=== PATIENT | male | born 1960 | race Caucasian/White ===

== ENCOUNTER 2018-06-20 20:35 | Emergency (ER) | payer MEDICARE, SELFPAY ==
[2018-06-20 20:36] VITALS: BP 192/107; PULSE 99; RESP 14; TEMP 36.6; O2SAT 98; BMI 33.2
--- NOTE | 2018-06-20 20:59 | ED.DCSUM_ITS ---
- ER Visit Summary Date of Service: 06/20/18 Chief Complaint: Right facial redness History of Present Illness: The patient is a 58 M past medical history of chronic back pain, gout and hypertension. He sees pain management. He says since last or Tuesday he has had right facial redness. Denies fever or chills. Denies any pus. Denies any injury. He does shave. He is never had anything like this before. Physical Examination: Well-appearing middle-age male. Vital signs are stable afebrile. HEENT exam pupils are round reactive light. His right cheek there is redness the tissue is firm and indurated. There is no fluctuance. There is no pus pocket. There is no discharge. Skin looks to be obviously infected. Like a folliculitis with cellulitis. It does not involve the eye. There is no cervical or preauricular lymphadenopathy. Neck is nontender. Lungs clear to auscultation. Heart regular rhythm no murmur. Abdomen soft nontender. He is moving all 4 extremities. Neurologically is awake and alert moving all 4 extremities. Test Results: None Emergency Department Course and Treatment: Patient has a facial folliculitis with cellulitis. There is no abscess to drain at this time. I did instruct him to return if he developed an abscess. He will be started on both Bactrim and Keflex for 10 days. First dose given in the ER. Treatment Plan: Keflex and Bactrim for 10 days. Warm compresses. Follow-up with his PCP. Disposition: Discharge Impression: Acute right facial folliculitis with cellulitis This note was generated with Influitive dictation software. It may contain incorrect words, spelling, and punctuation that were not noted in review of the chart prior to signing ED Disposition - Plan for ED Patient: Chief Complaint: Cellulitis Referrals: Harvey Erazo MD [Primary Care Provider] -
--- NOTE | 2018-06-20 20:59 | ED.DEP ---
ED Disposition - Plan for ED Patient: Disposition: Home or Assisted Living Chief Complaint: Cellulitis Instructions: ED Staph Infec Abx Tx Only Prescriptions: Cephalexin [Keflex] 500 mg PO Q6 #40 cap Smz/Tmp Ds [Bactrim Ds] 1 tab PO BID #20 tab Referrals: Harvey Erazo MD [Primary Care Provider] - 3-5 Days if not improving Additional Instructions: Warm compresses to right cheek. Bactrim 1 pill twice a day. Keflex 1 pill 4 times a day both till gone. Return if looking a lot worse or you develop an abscess where the swelling gets much worse. If you develop an abscess we will need to drain that.
[2018-06-20] MEDS: Cephalexin 250 MG Capsule 500 MG PO (21:09)
[2018-06-20] MEDS: Smz/Tmp Ds Tablet 1 TABLET PO (21:09)
== END 2018-06-20 21:12 | disposition home or self-care (01) ==
PROVIDERS: Emergency Provider Emergency Medicine; Family Provider Family Medicine; PCP Family Medicine
DX: L73.9 Follicular disorder, unspecified (principal); L03.211 Cellulitis of face; M54.9 Dorsalgia, unspecified; G89.29 Other chronic pain; M10.9 Gout, unspecified; I10 Essential (primary) hypertension; Z79.899 Other long term (current) drug therapy
CPT/HCPCS: 99283

== ENCOUNTER → 2018-10-20 13:47 | Outpatient (CLI) | payer MEDICARE, SELFPAY ==
[2018-10-20 15:00] LABS: Amphetamine Urine VISTA NEGATIVE (<1000 ng/mL); Barbiturate Urine VISTA NEGATIVE (< 200 ng/mL); Benzodiazepine Urine VISTA NEGATIVE (< 200 ng/mL); Cocaine Urine VISTA NEGATIVE (< 300 ng/mL); Ecstacy Urine VISTA NEGATIVE (< 500 ng/mL); Methadone Urine VISTA NEGATIVE (< 300 ng/mL); PCP Urine VISTA NEGATIVE (< 25 ng/mL); THC Urine VISTA NEGATIVE (< 50 ng/mL); Vista UDS pH Range 5
== END ==
PROVIDERS: Family Provider Family Medicine; PCP Family Medicine; Referring Provider Anesthesiology Pain Medicine; Visit Provider Anesthesiology Pain Medicine
DX: F11.20 Opioid dependence, uncomplicated (principal)
CPT/HCPCS: 80307

== ENCOUNTER → 2018-11-09 15:40 | Outpatient (CLI) | payer MEDICARE, SELFPAY ==
--- NOTE | 2018-11-09 15:05 | NASAL_PTH ---
PATIENT: PABLITO QUINN LOC: [facility] U#:[id number] AGE/SX: 65/M ROOM: RE11/09/[address]: Dr. Iraj Berger MD : 1960 BED: DIS: SPEC #: [id number] RECD: 11/09/18 15:21 STATUS: SHARDA KATHLEEN #: [id number] TYLER: 11/09/18 15:[address]: Iraj Berger DEPT: SURGICAL PATHOLOGY RECD BY: Laith Toney ENTERED: 11/10/18 09:46 SP TYPE: NASAL SPEC OTHR DR: Dr. Pablito Erazo MD Tissues: Nasal septum, NOS Procedures: Surgery Specimen Level III HEADER OPERATION: Biopsy nasal septum PRE-OP DIAGNOSIS: Nasal mass TISSUE SUBMITTED: Biopsy nasal septum MICROSCOPIC DIAGNOSIS Nasal septum, biopsy: Minute fragment of fibrovascular tissue with acute inflammation. AM:umm 11/13/18 MICROSCOPIC DESCRIPTION Slides are reviewed. GROSS DESCRIPTION Received in fixative is one container labeled with the patient's name and designated nasal septum biopsy. The specimen consists of a minute black fragment measuring <0.1 cm in greatest dimension. The entire specimen is submitted in one cassette. / SJ:umm 11/10/18 TC:2 CPT: 42492
== END ==
PROVIDERS: Family Provider Family Medicine; PCP Family Medicine; Referring Provider Otolaryngology; Visit Provider Otolaryngology
DX: R22.0 Localized swelling, mass and lump, head (principal)
CPT/HCPCS: 88304

== ENCOUNTER → 2018-11-13 09:26 | Outpatient (CLI) | payer MEDICARE, SELFPAY ==
--- NOTE | 2018-11-13 09:40 | EKG12_ITS ---
Test Reason : PREOP Blood Pressure : / mmHG Vent. Rate : 075 BPM Atrial Rate : 075 BPM P-R Int : 192 ms QRS Dur : 088 ms QT Int : 382 ms P-R-T Axes : 064 028 057 degrees QTc Int : 426 ms Normal sinus rhythm Normal ECG Confirmed by ALISA PATRICK, JEB ([id number]), editor farm journal CONSTANTINE FERNANDES ([id number]) on 11/14/2018 8:27:19 AM Referred By: Serjio Berger Confirmed By:JEB CUELLAR MD
[2018-11-13 10:02] LABS: Hemoglobin 13.1 g/dl (13.0-16.5); Mean Corpuscular Hgb 24.8 pg (27.0-32.0); Mean Corpuscular Volume 77.7 fL (80-94); Mean Platelet Vol. 9.5 fl (6.2-12.0); Platelet Count 248 K/mm3 (150-450); RBC Distribution Width CV 15.2 % (11.6-14.6); RBC Distribution Width SD 42.5 fl (35.1-43.9); Red Blood Count 5.28 M/mm3 (4.6-6.2); White Blood Count 7.2 K/mm3 (4.4-11.0)
[2018-11-13 10:06] LABS: Scan Indicated on CBC? Y/N NO
[2018-11-13 10:09] LABS: Anion Gap 7 (5-15); BUN 10 mg/dL (7-18); Calcium,Total 8.5 mg/dL (8.5-10.1); Chloride 102 mmol/L (98-107); EST Glomerular Filtration Rate 82 mL/min (>60); Est Glom Filt Rate - Afr Amer 99 mL/min (>60); Glucose 137 mg/dL (74-106); Potassium 3.5 mmol/L (3.5-5.1); Sodium Level 136 mmol/L (136-145)
== END ==
PROVIDERS: Family Provider Family Medicine; PCP Family Medicine; Referring Provider Otolaryngology Otolaryngology/Facial Plastic Surgery; Visit Provider Otolaryngology Otolaryngology/Facial Plastic Surgery
DX: Z01.818 Encounter for other preprocedural examination (principal)
CPT/HCPCS: 36415; 80048; 85027; 93005

== ENCOUNTER → 2019-06-20 16:37 | Outpatient (CLI) | payer MEDICARE, SELFPAY ==
[2019-06-20 17:19] LABS: Amphetamine Urine VISTA NEGATIVE (<1000 ng/mL); Barbiturate Urine VISTA NEGATIVE (< 200 ng/mL); Benzodiazepine Urine VISTA NEGATIVE (< 200 ng/mL); Cocaine Urine VISTA NEGATIVE (< 300 ng/mL); Ecstacy Urine VISTA NEGATIVE (< 500 ng/mL); Methadone Urine VISTA NEGATIVE (< 300 ng/mL); PCP Urine VISTA NEGATIVE (< 25 ng/mL); THC Urine VISTA NEGATIVE (< 50 ng/mL); Vista UDS pH Range 5
== END ==
PROVIDERS: Family Provider Family Medicine; PCP Family Medicine; Referring Provider Anesthesiology Pain Medicine; Visit Provider Anesthesiology Pain Medicine
DX: F11.20 Opioid dependence, uncomplicated (principal)
CPT/HCPCS: 80307

== ENCOUNTER → 2019-09-27 15:31 | Outpatient (CLI) | payer MEDICARE, SELFPAY ==
--- NOTE | 2019-09-27 15:38 | RAD_ITS ---
STUDY: X-RAY - LUMBAR SPINE REASON FOR EXAM: Male, 59 years old. CHRONIC LOW BACK PAIN; -- PATIENT STATES H/O FRACTURE L1 and amp; L2, 34 YRS AGO TECHNIQUE: 2 view(s) of the lumbar spine were obtained. COMPARISON: February 22, 2010 FINDINGS: Normal lumbar lordosis. Again noted is a chronic compression at L1 There is multilevel endplate spondylosis of the lumbar vertebrae. There is multi-level degenerative disc disease with multi-level disc space narrowing. The soft tissue structures are unremarkable. RAD/Lumbar Spine 2 or 3 Views IMPRESSION: Degenerative changes of the spine. Electronically Signed: Aniyah Le MD at 8:25 EST Tel , Service support ,
== END ==
PROVIDERS: PCP Family Medicine; Referring Provider Anesthesiology Pain Medicine; Visit Provider Anesthesiology Pain Medicine
DX: M54.9 Dorsalgia, unspecified (principal)
CPT/HCPCS: 72100

== ENCOUNTER 2019-10-14 21:08 | Emergency (ER) | payer MEDICARE, SELFPAY ==
[2019-10-14 21:08] VITALS: BP 205/108; PULSE 86; RESP 18; TEMP 36.8; O2SAT 98; BMI 31.8
[2019-10-14 21:36] VITALS: BP 173/112; RESP 16
--- NOTE | 2019-10-14 22:01 | ED.VIS.GEN ---
History of Present Illness Chief Complaint: Abscess Narrative: Patient presenting due to concern for infection of his finger. Patient is right-hand dominant. Patient states that he felt as if he was having an ingrown fingernail in the small digit of his left hand over the course of the last 3 to 4 days. He has had progressive swelling and pain, and now has whiteness under the proximal portion of the fingernail. Patient denies constitutional symptoms such as fevers. Patient denies any injury associated with this. Patient denies that he is a diabetic. 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 Past Medical History - Allergies and Home Meds Allergies/Adverse Reactions: Allergies propoxyphene napsylate [From Darvocet-N 100] Allergy (Verified 10/14/19 21:11) Rash tramadol HCl [From Ultram] Adverse Reaction (Verified 10/14/19 21:11) Upset Stomach Primary Care Physician: Harvey Erazo MD [Primary Care Provider] - Past Medical History: - - COPD, gout Smoking Status: Never smoker Review of Systems General: Denies: Fever Respiratory: Denies: Dyspnea Gastrointestinal: Denies: Vomiting Musculoskeletal: Reports: Extremity Pain Skin: Reports: Abscess Endocrine: Denies: Polyuria Hematologic: Denies: Easy bruising Allergy: Denies: Uticaria Physical Exam Vital Signs/Narrative: Vital Signs Temp Pulse Resp BP Pulse Ox 10/14/19 21:36 16 173/112 H 10/14/19 21:08 98.2 F 86 18 205/108 H 98 Inital Vital Signs reviewed: Yes General: Well nourished, Well developed, No Acute Distress Head: Normocephalic, Atraumatic Eyes: EOMI ENT: Moist mucous membranes Neck: Supple Cardiovascular: Regular rate, Regular rhythm Respiratory: No distress Extremities: - - Examination of the patient's upper extremity shows amputation of the distal portion of the patient's index long and ring finger on the left hand. Examination of the patient's small digit shows evidence of a paronychia over the ulnar portion of the proximal nail with some swelling of the distal phalanx, but the pad of the finger is still soft and does not appear to be fluctuant. There is erythema of the distal phalanx without tracking proximally. Neurological: Alert, Oriented x3 Diagnostic/Tx/Re-eval - Medical Decision Making Patient presented secondary to a infection of the finger. Physical exam demonstrates evidence of a paronychia. While he does have some swelling of the pad of his finger, it does not seem to be fluctuant and I do not feel that this is a presentation of a felon. Paronychia was drained as noted in the procedure note, the patient's finger was soaked in soapy water for 20 minutes and was dressed with a bacitracin dressing. Patient be placed on a course of Bactrim and was recommended antibacterial soaks 3 times a day and follow-up with primary care. He understands signs and symptoms which to return. Procedures Procedure(s): Incision and drainage of the patient's left small digit paronychia was performed. Area was cleansed with an alcohol prep. 21-gauge needle was utilized, and was used to dissect the space between the nail and the cuticle. Copious amounts of purulent material were expressed. Patient tolerated this well. ED Disposition - Plan for ED Patient: Disposition: Home or Assisted Living Diagnosis: Paronychia Instructions: Paronychia Prescriptions: Smz/Tmp Ds [Bactrim Ds] 1 tab PO BID #14 tab Prescription Printed Referrals: Harvey Erazo MD [Primary Care Provider] - 2 Days for wound check
[2019-10-14] MEDS: Smz/Tmp Ds Tablet 1 TABLET PO (22:10)
--- NOTE | 2019-10-14 22:13 | ED.RN ---
PT A+OX4. THIS RN EDUCATES PT ON WRITTEN AND VERBAL DISCHARGE INSTRUCTIONS AND HOME GOING PRESCRIPTIONS. PT EDUCATED ON WOUND CARE AND DRESSING CHANGES. PT VERBALIZES UNDERSTANDING AND DENIES ANY FURTHER QUESTIONS. PT EDUCATED ON FOLLOW UP AND TO RETURN TO ED FOR ANY NEW OR WORSENED SX. PT AMBULATES OUT OF DEPT BY SELF WITH NO ASSISTANCE FROM STAFF REQUIRED.
== END 2019-10-14 22:16 | disposition home or self-care (01) ==
PROVIDERS: Emergency Provider Emergency Medicine; PCP Family Medicine
DX: L03.012 Cellulitis of left finger (principal); J44.9 Chronic obstructive pulmonary disease, unspecified; M10.9 Gout, unspecified; Z79.899 Other long term (current) drug therapy
CPT/HCPCS: 10060; 99283

== ENCOUNTER → 2020-04-09 16:13 | Outpatient (CLI) | payer MEDICARE, SELFPAY ==
[2020-04-09 17:22] LABS: Amphetamine Urine VISTA NEGATIVE (<1000 ng/mL); Barbiturate Urine VISTA NEGATIVE (< 200 ng/mL); Benzodiazepine Urine VISTA NEGATIVE (< 200 ng/mL); Cocaine Urine VISTA NEGATIVE (< 300 ng/mL); Ecstacy Urine VISTA NEGATIVE (< 500 ng/mL); Methadone Urine VISTA NEGATIVE (< 300 ng/mL); PCP Urine VISTA NEGATIVE (< 25 ng/mL); THC Urine VISTA NEGATIVE (< 50 ng/mL); Vista UDS pH Range 8
== END ==
LOC: LAB 16:15
PROVIDERS: PCP Family Medicine; Referring Provider Anesthesiology Pain Medicine; Visit Provider Anesthesiology Pain Medicine
DX: F11.20 Opioid dependence, uncomplicated (principal)
CPT/HCPCS: 80307

== ENCOUNTER 2021-08-26 23:02 | Emergency (ER) | payer MEDICARE, SELFPAY ==
[2021-08-26 23:03] VITALS: BP 176/112; PULSE 82; RESP 16; TEMP 36.7; O2SAT 96; BMI 31.8
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
[2021-08-26] MEDS: Cephalexin 250 MG Capsule 500 MG PO (23:49)
[2021-08-26] MEDS: Lidocaine 1% (20 ml mdv) 20 ML Vial INFILT (23:50)
[2021-08-26 23:51] VITALS: RESP 18
== END 2021-08-26 23:52 | disposition home or self-care (01) ==
LOC: ED 23:43
PROVIDERS: Emergency Provider Emergency Medicine; PCP Family Medicine; Visit Provider Emergency Medicine
DX: L03.313 Cellulitis of chest wall (principal); I10 Essential (primary) hypertension; Z79.899 Other long term (current) drug therapy; R22.2 Localized swelling, mass and lump, trunk
CPT/HCPCS: 10060; 99282

== ENCOUNTER 2022-02-11 18:29 | Emergency (ER) | payer MEDICARE, SELFPAY ==
[2022-02-11 18:29] VITALS: BP 198/114; PULSE 112; RESP 26; TEMP 36.3; O2SAT 95; BMI 30.3
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
[2022-02-11 19:51] VITALS: BP 172/105; PULSE 76; RESP 15; O2SAT 98
[2022-02-11 20:34] VITALS: BP 180/103; PULSE 84; RESP 15; O2SAT 97
--- NOTE | 2022-02-11 20:35 | ED.RN ---
pt asked if he had a ride that we could call for him. no ride. dr was consulted and pt released. pt was able to ambulate out of department with a steady gait without signs of balance issues. julien mota rn [id number]
== END 2022-02-11 20:37 | disposition home or self-care (01) ==
PROVIDERS: Emergency Provider Emergency Medicine; PCP Family Medicine; Visit Provider Emergency Medicine
DX: J96.00 Acute respiratory failure, unspecified whether with hypoxia or hypercapnia (principal); T40.601A Poisoning by unspecified narcotics, accidental (unintentional), initial encounter; I10 Essential (primary) hypertension; Z79.899 Other long term (current) drug therapy
CPT/HCPCS: 99285

== ENCOUNTER 2023-05-08 21:40 | Emergency (ER) | payer MEDICARE, MEDICAID, SELFPAY ==
[2023-05-08 21:42] VITALS: BP 189/111; PULSE 90; RESP 16; TEMP 36.1; BMI 30.5
[2023-05-08 21:46] VITALS: BP 189/111; PULSE 90; RESP 16; TEMP 36.1
[2023-05-08 22:07] VITALS: BMI 27.1
--- NOTE | 2023-05-08 22:10 | EDS_ITS ---
HPI History of Present Illness Chief Complaint: Lower Extremity Injury [facility] Medical History (Updated 05/08/23 @ 23:[address] Austin Vasquez, DO) Gout Hypertension Home Medications lisinopril 10 mg tablet 40 mg PO DAILY 06/14/13 [History Last Taken 09/09/13] allopurinol 100 mg tablet 300 mg PO DAILY 03/03/15 [History Last Taken Unknown] oxycodone 5 mg capsule 5 mg PO Q6H PRN pain 3 days #12 caps 05/08/23 [Rx Last Taken Unknown] prednisone 50 mg tablet 50 mg PO DAILY #5 tabs 05/08/23 [Rx Last Taken Unknown] Allergy/AdvReac Type Severity Reaction Status Date / Time propoxyphene napsylate Allergy Rash Verified 05/08/23 21:41 [From Darvocet-N 100] tramadol HCl [From Ultram] AdvReac Upset Verified 05/08/23 21:41 Stomach Social History Smoking Status: Never smoker EXAM Physical Exam Const Vital Signs: 05/08/23 21:42 05/08/23 21:46 Temperature 97.0 F L 97.0 F L Temperature Source Temporal Temporal Pulse Rate 90 90 Respiratory Rate 16 16 Blood Pressure 189/111 H 189/111 H Blood Pressure Mean 137 137 MDM MDM MDM Narrative Medical decision making narrative: HISTORY OF PRESENT ILLNESS: 63-year-old male here with concern for left foot pain. States he is history of gout but has been suffering from pain for the last several days secondary to not be able to arrange transportation to the emergency department. He states this feels like prior gouty flares. Denies history of diabetes or fevers. States he has first digit pain and left knee pain. No injury noted. Patient denies active cancer, being bedridden for greater than 3 days, denies unilateral leg swelling, denies any varicose veins, denies any calf tenderness, denies tenderness along deep venous system. Denies major surgery within 12 weeks, recent paralysis, previous DVT. REVIEW OF SYSTEMS: Pertinent positives: Pain Pertinent negatives: Fever, chills, loss of sensation PHYSICAL EXAM: Nursing triage notes reviewed, Vital signs reviewed Constitutional: please see mdm HENT: MMM Eyes: Pupils equal round and reactive to light, Extraocular muscles intact Neck: No stridor, no JVD, full neck ROM Lungs: Clear to auscultation, No wheezing or rales. No increased work of breathing, no conversational dyspnea, no accessory muscle use, no nasal flaring. No respiratory distress noted Heart: Regular rate and rhythm, No murmurs, No rubs and No gallops, 2+ distal pulses (radial, femoral, posterior tibial) in all extremities Abdomen: Soft, there is no tenderness, rigidity, rebound or guarding, no obvious peritoneal signs, no palpable pulsatile abdominal masses, no auscultated abdominal bruit : No CVAT Extremities: Slight swelling noted to the left first MTP, no obvious deformities or signs of open fracture. Compartments are soft. Neuro: No focal neurological deficits, cranial nerves II through XII intact, 5/5 strength in all extremities. Intact sensation to light touch in all extremities, 2+ reflexes bilateral patella tendons. Normal gait. No ataxia. Skin: No rash or lesions noted, is no crepitus or bullae no overlying erythema or cellulitic changes. MEDICAL DECISION MAKING: Chief Complaint: Left foot pain External records reviewed: Imaging studies reviewed: X-ray of the patient's right ankle from 2015 shows no acute abnormality Factors affecting care: Hypertension, gout Social determinants of health: Poor access to transportation MDM Narrative: Patient was initially hemodynamically stable, afebrile, nontoxic-appearing. Elevated blood pressure was noted likely secondary to pain. I considered the following differential diagnosis: Gout arthritis, septic art hritis, fracture dislocation, compartment syndrome, acute limb ischemia, DVT There is no clinical evidence to suggest septic arthritis, fracture dislocation, compartment syndrome, acute limb ischemia or DVT. There is no trauma to suggest fracture dislocation. No indication for imaging at this time. Patient's clinical presentation is consistent with a gouty flare. Will give anti-inflammatories and form of NSAIDs, prednisone and give pain relief in the form of oral narcotics. Gave strict return precautions and follow-up instructions The patient and/or family, caregivers express understanding. The patient and/or family, caregivers agrees with the plan. Shared decision making: I will have a discussion with the patient and or visitors regarding risk/benefits of further testing or admission. They will be made aware of of the risk/benefits inherent in this decision they will be given the opportunity to voice understanding. Total critical care time today provided was at least 0 [] minutes. This excludes separately billable procedures. Critical care time (if documented) is secondary to the patient having high probability of clinically significant/life threatening deterioration in the patient's condition which required my urgent intervention. Impression: 1. Gouty flare 2. Hypertension Dispo: Discharge Discharge Plan Triage Chief Complaint: Lower Extremity Injury ED Provider: Austin Vasquez Dx/Rx/DC Orders Instructions: ED Gout Prescriptions: New prednisone 50 mg tablet 50 mg PO DAILY Qty: 5 0RF oxycodone 5 mg capsule 5 mg PO Q6H PRN (Reason: pain) 3 Days Qty: 12 0RF No Action lisinopril 10 MG tablet 40 mg PO DAILY allopurinol 100 MG tablet 300 mg PO DAILY Primary Care Provider: Harvey Erazo Referrals: Harvey Erazo MD [Primary Care Provider] - Activity Restrictions/Additional Instructions: Thank you for trusting us with your care today! Please take Tylenol (2 pills, 650 mg), ibuprofen (2 pills, 400 mg) every 6 hours as needed for pain and fever control. Please take oxycodone if this does not relieve your pain. Please take prednisone as prescribed. Please return to the emergency department if your symptoms change or worsen. Please follow with your primary care physician for further outpatient evaluation and management. Disposition Disposition: Home, Self Care
[2023-05-08] MEDS: Oxycodone/Apap 5/325 Tablet PO (23:33)
[2023-05-08] MEDS: predniSONE 20 MG Tablet 40 MG PO (23:33)
[2023-05-08] MEDS: Ibuprofen 200 MG Tablet 400 MG PO (23:33)
== END 2023-05-08 23:42 | disposition home or self-care (01) ==
PROVIDERS: Emergency Provider Emergency Medicine; PCP Family Medicine; Visit Provider Emergency Medicine
DX: M10.9 Gout, unspecified (principal); I10 Essential (primary) hypertension; Z79.899 Other long term (current) drug therapy
CPT/HCPCS: 99283

== ENCOUNTER 2024-09-26 04:08 | Inpatient (IN) | payer MEDICARE, MEDICAID, SELFPAY ==
[2024-09-26] VITALS (20 sets, daily range): BP systolic 128–198; BP diastolic 59–113; PULSE 58–99; RESP 14–18; TEMP 36.2–37; O2SAT 94–100; BMI 28.8; BMI 27.4
--- NOTE | 2024-09-26 04:28 | RAD_ITS ---
PROCEDURE: KNEE 4 OR MORE VIEWS REASON FOR EXAM: 64-year-old male, left knee pain. Fall 3 days ago. TECHNIQUE: 4 view(s) of the left knee COMPARISON: None. FINDINGS: Diffuse osseous demineralization. No fracture. No suspicious bone lesion. Normal alignment. Mild degenerative changes. Small left knee effusion. Soft tissues are unremarkable. RAD/Knee 4 or More Views IMPRESSION: KNEE JOINT EFFUSION. WITH A HISTORY OF TRAUMA AND NO VISIBLE FRACTURE, INTERNAL DERANGEMENT CANNOT BE EXCLUDED. Reading Location: [id number]
[2024-09-26 05:00] LABS: Absolute Lymphocyte Count 0.94 X10^3/uL (0.83-4.51); Basophil# 0.08 X10^3/uL; Basophil% 0.6 % (0-1); Eosinophil# 0.05 X10^3/uL; Eosinophils% 0.4 % (0-5); Hemoglobin 15.8 g/dL (13.0-16.5); Lymphocyte # 0.94 X10^3/ul (0.83-4.51); Lymphocyte % 6.9 % (19-41); Mean Corp Hgb Conc 35.1 g/dL (32-36); Mean Corpuscular Hgb 28.5 pg (27.0-32.0); Mean Corpuscular Volume 81.1 fL (80-94); Monocyte# 1.53 X10^3/uL; Monocyte% 11.2 % (0-10); NRBC Flagged by Analyzer 0 % (0-5); Neutrophil % 80.2 % (47-70); POSITIVE DIFFERENTIAL YES; Platelet Count 308 K/mm3 (150-450); RBC Distribution Width CV 13.3 % (11.6-14.6); RBC Distribution Width SD 38.5 fl (35.1-43.9); Red Blood Count 5.55 M/mm3 (4.6-6.2); White Blood Count 13.7 K/mm3 (4.4-11.0)
[2024-09-26 05:01] LABS: Differential Indicated SCAN CRITERIA MET
[2024-09-26 05:02] LABS: Anion Gap 11 (5-15); BUN 27 mg/dL (7-18); BUN/Creat Ratio 18.4 RATIO (10-20); Calcium,Total 9.1 mg/dL (8.5-10.1); Chloride 96 mmol/L (98-107); Creatinine, Serum 1.47 mg/dL (0.70-1.30); EST Glomerular Filtration Rate 52 mL/min (>60); Est Glom Filt Rate - Afr Amer 62 mL/min (>60); Glucose 108 mg/dL (74-106); Potassium 3.3 mmol/L (3.5-5.1); Sodium Level 130 mmol/L (136-145); Uric Acid 7.6 mg/dL (3.5-7.2)
[2024-09-26] MEDS: Lidocaine 2% /Epi 1:100 (20ml) 20 ML VIAL INFILT (05:09)
[2024-09-26 05:11] LABS: Lactic Acid 1.3 mmol/L (0.4-1.9)
[2024-09-26] MEDS: Ketorolac 30 MG/ML Syringe IV (05:15)
[2024-09-26] MEDS: 0.9% Normal Saline (1000mL) 1,000 ML 999 ML IV (05:15)
[2024-09-26 05:26] LABS: Differential Comment SCANNED; Erythrocyte Sedimentation Rate 57 mm/hr (0-20)
[2024-09-26 05:56] LABS: Synovial Fld Mononuclear WBC # 1.661 10^3/ul; Synovial Fld Mononuclear WBC % 4.9 %; Synovial Fld Polynuclear WBC # 32.445 10^3/uL; Synovial Fld Polynuclear WBC % 95.1 %
[2024-09-26 07:07] LABS: CRYSTALS, BODY FLUID See PATH REV
[2024-09-26 07:08] LABS: RBC /Synovial Fluid 0.003 10^6/uL (0)
--- NOTE | 2024-09-26 07:10 | EDS_ITS ---
HPI History of Present Illness Chief Complaint: Lower Extremity Injury Informant: patient and EMS Narrative Narrative: Patient is a 64-year-old male with past medical history of gout and hypertension. He states on Tuesday he was walking when he slipped on the snow. He states he did not fall or strike his knee and he states that he did not have any sudden onset of pain or swelling. However over the next 3 days he noticed increasing left knee swelling and pain. He states he got to the point where he could not stand and walk this morning and therefore called EMS to bring him in for evaluation. Patient denies any fevers or chills or history of immunosuppre ssion [facility] Medical History Gout Hypertension Home Medications ?Medication ?Instructions ?Recorded ?Last Taken ?Type lisinopril 10 mg tablet 40 mg PO BID 06/14/13 History allopurinol 100 mg tablet 100 mg PO DAILY 03/03/15 Unk nown History hydrochlorothiazide 12.5 mg tablet 12.5 mg PO BID 09/08 05/02 Unknown History Allergy/AdvReac Type Severity Reaction Status Date / Time propoxyphene napsylate (From Allergy Rash Verified 09/26/24 04:09 Darvocet-N 100) tramadol HCl (From Ultram) AdvReac Upset Verified 09/26/24 04:09 Stomach Social History Smoking Status: Never smoker ROS ROS ED Constitutional Constitutional ED: Denies chills or fever(s) Eyes Eyes: Denies change in vision ENT ENT ED: Denies sore throat Cardiovascular Cardiovascular: Denies chest pain Respiratory/Chest Respiratory/Chest: Denies cough or dyspnea Gastrointestinal Gastrointestinal: Denies abdominal pain, diarrhea, nausea or vomiting Genitourinary Genitourinary ED: Denies dysuria Musculoskeletal Musculoskeletal: Reports other Details: Positive left knee pain and swelling Integumentary Denies Abrasions or rash Neurologic Neurologic: Reports weakness; Denies headache(s) or paresthesias Hematologic/Lymphatic Hematologic/Lymphatic: Denies easy bleeding or easy bruising EXAM Physical Exam Const Vital Signs: 09/26/24 04:10 09/26/24 06:00 Temperature 98.5 F Temperature Source Oral Pulse Rate 82 66 Respiratory Rate 16 18 Blood Pressure 189/99 H 181/104 H Blood Pressure Mean 129 129 Pulse Ox 96 94 Oxygen Delivery Method Room Air Room Air Positive well nourished and well developed General Appearance ED: well developed HEENT HEENT Narrative: Normocephalic atraumatic Eyes PERRL and EOMs intact bilaterally General Eye ED: Negative for scleral icterus Neck supple Neck Narrative: No nuchal rigidity or meningeal signs Resp normal respiratory effort and clear to auscultation bilaterally Cardio regular rate and regular rhythm Extremity Extremity Narrative: Left lower extremity is neurovascularly intact Patient has soft tissue swelling with joint effusion to the anterior aspect of the left knee. There is faint overlying warmth without erythema. No obvious bony deformity Compartments are soft and compressible going against compartment syndrome Patient is able to straight leg raise the left leg off the bed but unable to flex Remainder the exam is normal Neuro oriented x3, CN's II-XII intact bilaterally and no sensory deficits noted Sensorium / Orientation: alert Psych mental status grossly normal Skin no rashes or lesions noted and no wounds Skin Narrative: Soft tissue swelling/joint effusion of the anterior aspect of the left knee with faint warmth without erythema as documented above MDM MDM MDM Narrative Medical decision making narrative: Patient arrived to the ER hypertensive but has a past medical history of this. He reported 3 days of increasing left knee swelling without obvious trauma. He did report a slip prior to the pain and swelling but this occurred multiple hours later and not within a short timeframe from the accidental trip/slip and therefore I feel that goes against a ligamentous tear. He does have a history of gout and that is a possibility for his unprovoked swelling and pain the patient may also have developed a septic joint as range of motion is minimal and he cannot ambulate. Secondary to this an x-ray was obtained which showed the joint effusion without signs of osteomyelitis or free air. The patient's white count is elevated at 13.7 he does have left shift with 11 neutrophils and his CRP is elevated at 186 and his ESR is also elevated at 57. Therefore with concern for potential septic joint the joint was drained as documented below in the joint fluid was sent to lab for further evaluation. At this time I elected to hold off on consulting orthopedic surgery as we do not have the results of the joint aspiration and I felt this would help guide plan of care. Once the joint fluid came back after 7 AM I paged orthopedic surgery on-call Dr. Driver. He states that I should have contacted the orthopedic surgeon on-call overnight as the patient came in during this time and I should not of waited for the joint aspiration results and therefore does not want to provide insight into the case. Therefore I asked the hospital secretary to page Dr. Guthrie who was orthopedic surgeon on overnight. I have not heard back from him at this time as he is most likely in surgery and is not required to call back as he is now not technically on- call. However as there is a large amount of joint aspirated fluid in the lab and they are currently running in samples he will be given a dose of IV Rocephin while awaiting further consult from orthopedic surgery. At this time further consultation with orthopedic surgery still pending and therefore the patient be signed out to the dayshift doctor Andres Patient had the left knee placed in flexion. The area was prepped in sterile fashion and cleaned with chlorhexidine. The lateral aspect of the left knee was then anesthetized with 8 mL of 2% lidocaine with epinephrine. Following this a 18-gauge needle was inserted entering the joint space and there was return of thick yellow joint fluid. Approximately 100 mL of joint fluid was aspirated and after doing so there was resolution of the joint effusion by physical exam. The wound was covered with a Band-Aid and then the knee wrapped with an Boy wrap. Patient tolerated procedure well without complication History & Record Review Discussion w/independent historian: EMS personnel and Patient Lab Data Attestation: I reviewed the patient's lab results. Labs: Laboratory Results - last 24 hr 09/26/24 09/26/24 04:35 05:26 WBC 13.7 H RBC 5.55 Hgb 15.8 Hct 45.0 MCV 81.1 MCH 28.5 MCHC 35.1 RDW Std Deviation 38.5 RDW Coeff of Gopi 13.3 Plt Count 308 MPV 10.0 Immature Gran % (Auto) 0.700 Neut % (Auto) 80.2 H Lymph % (Auto) 6.9 L Bourbon % (Auto) 11.2 H Eos % (Auto) 0.4 Baso % (Auto) 0.6 Absolute Neuts (auto) 11.0 H Absolute Lymphs (auto) 0.94 Nucleated RBC % 0 Differential Comment SCANNED Diff Path Review May foll ESR 57 H Sodium 130 L Potassium 3.3 L Chloride 96 L Carbon Dioxide 23.0 Anion Gap 11 BUN 27 H Creatinine 1.47 H Estim Creat Clear Calc 62.70 Est GFR (MDRD) Af Amer 62 Est GFR (MDRD) Non-Af 52 L BUN/Creatinine Ratio 18.4 Glucose 108 H Lactic Acid 1.3 Uric Acid 7.6 H Calcium 9.1 C-React Prot Ext Range 186.00 H Fluid Crystals See PATH REV Fluid Crystal Source SYNOVIAL Synovial Source L KNEE Synovial Color Yellow Synovial Appearance Turbid Synovial WBC 31.6000 H Synovial RBC 0.[address] H Synovial Tot Cell Ct 31.7000 H Synov Polynuclear WBCs 32.445 Synov Mononuclear WBCs 1.661 Synovial Neutrophils 97 H Synovial Monocytes 3 Synovial Polynuclear % 95.1 Synovial Mononuclear % 4.[address] Comment May follow Radiography Diagnostic Testing: Clinical Impression(s) from Imaging Studies Knee X-Ray 09/26/24 04:28 IMPRESSION: KNEE JOINT EFFUSION. WITH A HISTORY OF TRAUMA AND NO VISIBLE FRACTURE, INTERNAL DERANGEMENT CANNOT BE EXCLUDED. Reading Location: [facility] X-ray of the left knee as interpreted by the emergency medicine physician reveals a large joint effusion without acute fracture or dislocation Discharge Plan Triage Chief Complaint: Lower Extremity Injury ED Provider: Aaron Heck Dx/Rx/DC Orders Clinical Impression: Effusion of left knee joint, Hypertension Prescriptions: No Action lisinopril 10 MG tablet 40 mg PO BID allopurinol 100 MG tablet 100 mg PO DAILY hydrochlorothiazide 12.5 mg tablet 12.5 mg PO BID Primary Care Provider: Harvey Erazo Referrals: Harvey Erazo MD [Primary Care Provider] - Print Language: Icelandic
[2024-09-26 07:12] LABS: AUTO B FLUID DILUENT BKGD CT WBC <0.1 RBC <0.01 (W<.1,R<.01); Appearance /Synovial Fluid Turbid (CLEAR); Color / Synovial Fluid Yellow (Pale Yellow); Source / Synovial Fluid L KNEE; Source- Body Fluid SYNOVIAL
[2024-09-26] MEDS: Ceftriaxone 1 GM/50 ML BAG IV (07:38)
[2024-09-26 07:49] LABS: Monocyte /Synovial Fluid 3 %; Neutrophil 97 % (0-25)
[2024-09-26 07:55] LABS: Body Fluid QC Type(s) BF4
--- NOTE | 2024-09-26 09:27 | CONS.ORTHO ---
HPI Consult Data Date of Consult: 09/26/24 HPI Narrative HPI Narrative: PABLITO QUINN, is a 64 M who presents 1 week history of a left knee pain. The patient denies IV drugs marijuana or alcohol or smoking use. This came on apparently atraumatic. The patient denies fevers chills or bodyaches but has had a 1 week history of increasing knee pain swelling redness no drainage. Difficulty ambulating on the leg. There is a aspiration done this morning and it was called at about a little after 9 AM about stat urgent septic knee. The patient was already started on antibiotics at this point as the sample was obtained. I am also told that crystals were negative and that there is an increased white blood cell count and the aspirate as well as high inflammatory markers. [facility] Medical History Gout Hypertension Home Medications ?Medication ?Instructions ?Recorded ?Last Taken ?Type lisinopril 10 mg tablet 40 mg PO BID 06/14/13 09/09/13 History allopurinol 100 mg tablet 100 mg PO DAILY 03/03/15 Unknown History hydrochlorothiazide 12.5 mg tablet 12.5 mg PO BID 09/26/24 Unknown History Allergy/AdvReac Type Severity Reaction Status Date / Time propoxyphene napsylate (From Allergy Rash Verified 09/26/24 04:09 Darvocet-N 100) tramadol HCl (From Ultram) AdvReac Upset Verified 09/26/24 04:09 Stomach Social History Smoking Status: Never smoker Vital Signs Vital Signs Vital Signs: 09/26/24 04:10 09/26/24 06:00 Temperature 98.5 F Temperature Source Oral Pulse Rate 82 66 Respiratory Rate 16 18 Blood Pressure 189/99 H 181/104 H Blood Pressure Mean 129 129 Pulse Ox 96 94 Oxygen Delivery Method Room Air Room Air Weight Weight: 212 lb 4.882 oz Body Mass Index (BMI) 28.8 Physical Exam Const alert and oriented x3 General Appearance: cooperative Extremity Extremity Narrative: Left knee has a 2+ effusion. There is mild warmth mild redness. Range of motion is from 10 to 80 degrees with pain throughout the range of motion. Neurovascular intact normal sensation throughout the foot foot is warm well-perfused able to wiggle toes dorsiflex plantarflex foot no hip pain or ankle pain no other hot warm swollen joint joints. Lab / Micro Data Attestation: I reviewed the patient's lab results. 09/26/24 04:35 09/26/24 04:35 Labs: Laboratory Results - last 24 hr 09/26/24 04:35: WBC 13.7 H, RBC 5.55, Hgb 15.8, Hct 45.0, MCV 81.1, MCH 28.5, MCHC 35.1, RDW Std Deviation 38.5, RDW Coeff of Gopi 13.3, Plt Count 308, MPV 10.0, Immature Gran % (Auto) 0.700, Neut % (Auto) 80.2 H, Lymph % (Auto) 6.9 L, Clare % (Auto) 11.2 H, Eos % (Auto) 0.4, Baso % (Auto) 0.6, Absolute Neuts (auto) 11.0 H, Absolute Lymphs (auto) 0.94, Nucleated RBC % 0, Differential Comment SCANNED, Diff Path Review May foll, ESR 57 H, Sodium 130 L, Potassium 3.3 L, Chloride 96 L, Carbon Dioxide 23.0, Anion Gap 11, BUN 27 H, Creatinine 1.47 H, Estim Creat Clear Calc 62.70, Est GFR (MDRD) Af Amer 62, Est GFR (MDRD) Non-Af 52 L, BUN/Creatinine Ratio 18.4, Glucose 108 H, Lactic Acid 1.3, Uric Acid 7.6 H, Calcium 9.1, C-React Prot Ext Range 186.00 H 09/26/24 05:26: Fluid Crystals See PATH REV, Fluid Crystal Source SYNOVIAL, Synovial Source L KNEE, Synovial Color Yellow, Synovial Appearance Turbid, Synovial WBC 31.6000 H, Synovial RBC 0.003 H, Synovial Tot Cell Ct 31.7000 H, Synov Polynuclear WBCs 32.445, Synov Mononuclear WBCs 1.661, Synovial Neutrophils 97 H, Synovial Monocytes 3, Synovial Polynuclear % 95.1, Synovial Mononuclear % 4.9, Synovial Path Comment May follow Micro: Microbiology 09/26/24 05:26 Fluid - Synovial (joint) Gram Stain - Final Imaging Radiology Impression Knee X-Ray 09/26/24 04:28 IMPRESSION: KNEE JOINT EFFUSION. WITH A HISTORY OF TRAUMA AND NO VISIBLE FRACTURE, INTERNAL DERANGEMENT CANNOT BE EXCLUDED. Reading Location: [facility] I independently reviewed the imaging. Concur with radiologist report. Large effusion Assessment & Plan Assessment/Plan (1) Effusion of left knee joint: PLAN: 64-year-old man with acute atraumatic left knee pain and swelling with high white blood cell count high inflammatory markers as well as knee aspirate turbid 100cc apparently per Dr. Campos, with aspirate showing a high white blood cell count 31,000 with a left shift as well as although I cannot see it in the chart I am told the crystals were negative. I discussed the pros and cons risks and benefits of nonoperative management which would be high chance of long-term damage of the joint versus left knee arthroscopy irrigation debridement for an acute septic joint of the left knee. The patient agrees to surgery consented and booked let the OR staff know this is emergency case and went I will proceed to surgery the patient has been fasting since last evening unremarkable left knee. He understands no further questions or concerns. Pros and cons risks and benefits were discussed with the patient including but not limited to infection, pain, stiffness, bleeding, damage to surrounding structures, neurovascular injury, recurrence or retear, failure or wear of hardware or fixation, instability, fracture, deep vein thrombosis and pulmonary embolism, anesthetic risks, , patient dissatisfaction, need for further surgery and other risks. Patient understood and wished to proceed with surgery, and signed the informed consent documentation.
[2024-09-26] MEDS: 0.9% Normal Saline (1000mL) 1,000 ML 15 ML IV (09:59)
--- NOTE | 2024-09-26 10:07 | PCM.PRE.AN2 ---
ASA Classification* ASA Classification ASA Classification: 3 and E Assessment & Plan Anesthesia* Anesthesia Assessment Anesthesia Assessment: Discussed sedation and/or anesthesia options, risks, benefits, and alternatives with patient/parents/legal guardian/POA. Questions invited. The patient/parents/legal guardian/POA seems to understand and agrees to proceed with anesthesia plan. Reviewed the physical assessment, medical history, allergy history and patient home medications list prior to surgery/procedure/anesthetic and documented any changes. Performed airway and anesthesia risk assessments. Anesthesia Type Anesthesia Type: General History Source History Obtained from:: Patient and Chart Anesthesia Focused Assessment* Temperature: 98.1 F Pulse Rate: 68 Blood Pressure: 189/107 Respiratory Rate: 18 Pulse Ox: 98 Oxygen Delivery Method: Room Air Airway Assessment Mouth opens: >3 cm Mallampati Score: III Teeth Condition: Chipped/Broken (Patient has poor dentition. Most of his teeth are missing.) Neck Range of motion (ROM): Limited ROM (Slight decrease in extension) Comment: Patient has a upper palate prosthesis. He needs this in to be able to speak. Focused Labs Anesthesia Preop lab: CBC WBC 13.7 K/mm3 (4.4-11.0) H 09/26/24 04:35 09/26/24 RBC 5.55 M/mm3 (4.6-6.2) 09/26/24 04:35 09/26/24 Hgb 15.8 g/dL (13.0-16.5) 09/26/24 04:35 09/26/24 Hct 45.0 % (40-54) 09/26/24 04:35 09/26/24 Plt Count 308 K/mm3 (150-450) 09/26/24 04:35 09/26/24 CHEMISTRY Potassium 3.3 mmol/L (3.5-5.1) L 09/26/24 04:35 09/26/24 Sodium 130 mmol/L (136-145) L 09/26/24 04:35 09/26/24 Magnesium Pending 09/26/24 04:35 09/26/24 BUN 27 mg/dL (7-18) H 09/26/24 04:35 09/26/24 Creatinine 1.47 mg/dL (0.70-1.30) H 09/26/24 04:35 09/26/24 Glucose 108 mg/dL (74-106) H 09/26/24 04:35 09/26/24 COAG Pre-Assessment Diagnosis/Proposed Procedure Planned Operative Procedure(s): Left knee arthroscopy. Irrigation and debridement. 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 When Was Last Pacemaker Check QUESTION #4 FULL TEXT: You/Your Family Experience fever (hyperthermia) with Anesthesia Last Oral Intake Last Oral intake: Last Oral Intake NPO since 04:30 09/26/24 09:31 Meds taken in AM with sips of water? 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 day worker Female HX of Motion Sickness HX of N/V After Surgery Non-Smoker Duration of Surgery greater than 60 minutes Number of Risk Factors PONV Score Height & Weight Height & Weight: Anesthesia: Height & Weight Height 6 ft 09/26/24 09:31 Weight: 96.3 kg 09/26/24 09:31 Body Mass Index (BMI) 28.8 09/26/24 09:31 Respiratory Assessment Respiratory Assessment - odd jobs day worker: Respiratory Tract Infection Hx - odd jobs day worker Hx Respiratory Tract Infection No 09/26/24 09:31 STOP Sleep Apnea STOP Sleep Apnea - odd jobs day worker: STOP Sleep Apnea - odd jobs day worker Hx Hypertension Yes 09/26/24 09:31 Hx Sleep Apnea No 09/26/24 09:31 CPAP BIPAP Do you snore loudly (louder No 09/26/24 09:31 than talking or can be heard Do you often feel tired/ No 09/26/24 09:31 fatigued/ sleepy during daytime? Has anyone observed you stop No 09/26/24 09:31 breathing during sleep? STOP Results Negative 09/26/24 09:31 QUESTION #5 FULL TEXT : Do you snore loudly (louder than talking or can be heard through closed doors)? 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 Specify any problems Hx of Preganancy in last 3 Months Nurse Filling Out Transfusion & Questions: Date: Time: Patient unable to answer at this time (ie. confused, unrespo /Reproduction History /Reproductive History - odd jobs day worker: /Reproductive Hx- odd jobs day worker Hx Now Gestational Age (in weeks): EDC: Hx Hx Para Hx Section SAB Active Medications Active Medications: Current Medications Generic Name Dose Route Start Last Admin Trade Name Freq PRN Reason Stop Dose Admin Sodium Chloride 1,000 mls @ 15 mls/hr 09/26/24 09:55 09/26/24 09:59 IV 10/01/24 23:14 15 mls/hr .Q48H BRONSON Administration Protocol [facility] Medical History Gout Hypertension Home Medications ?Medication ?Instructions ?Recorded ?Last Taken ?Type lisinopril 10 mg tablet 40 mg PO BID 06/14/13 09/09/13 History allopurinol 100 mg tablet 100 mg PO DAILY 03/03/15 Unknown History hydrochlorothiazide 12.5 mg tablet 12.5 mg PO BID 09/26/24 Unknown History Allergy/AdvReac Type Severity Reaction Status Date / Time propoxyphene napsylate (From Allergy Rash Verified 09/26/24 04:09 Darvocet-N 100) tramadol HCl (From Ultram) AdvReac Upset Verified 09/26/24 04:09 Stomach Surgical History (Updated 09/26/24 @ 10:[address] Armand Pete MD) Finger amputation, traumatic S/P right knee arthroscopy Social History Smoking Status: Never smoker Review of Systems (Anesthesia) ROS Narrative System reviewed and no additional complaints, except as documented.
[2024-09-26 10:16] LABS: Magnesium 1.4 mg/dL (1.6-2.6)
[2024-09-26] MEDS: Epinephrine (1 mg/ml) 1 MG/ML VIAL (11:31)
[2024-09-26] MEDS: Bupivacaine 0.25% 30 ML Vial (11:48)
--- NOTE | 2024-09-26 11:52 | OP.PCM_ITS ---
Problems Associated Problem List Diagnoses (1) Effusion of left knee joint: (2) Septic joint of left knee joint: Operative Report (Standard) Operative Information Date of Procedure: 09/26/24 Pre-Operative Diagnosis: L knee SA Post-Operative Diagnosis: same, possible gout Surgery/Procedure Performed: L knee arthroscopy, irrigation and debridement kickboxing instructor: Fredy Shaper Setter: melanie Tasks completed by senior administrative assistant: Retracting Additional judicial administrative assistant?: No Type of Anesthesia: General and Local RN Documented Start/Stop Times: Operation Date: 09/26/24 11:35 Case Time Into Pre-Op 09/26/24 09:42 Out of Pre-Op 09/26/24 11:05 Anesthesia Start 09/26/24 11:09 Into Room 09/26/24 11:09 Procedure Start 09/26/24 11:31 Procedure End 09/26/24 11:51 Procedure Start Time: 11:31 Procedure Stop Time: 11:51 Select all DRAINS/GRAFTS/IMPLANTS that apply: None Estimated Blood Loss: 10 Specimen collected: No Description of surgery: Patient brought to the operating room theater. Placed supine on the table. 2 g IV Ancef administered prior to the start of the case. General anesthesia induced. All bony prominences padded. SCD on the nonoperative leg. Stress positioner to the patient's left side. Left lower extremity prepped and draped in the usual sterile fashion allowing over 3 minutes drying time prior to draping. Preoperative timeout performed to confirm the site patient and the surgery. Began by elevating the limb inflated the tourniquet to 250 mmHg. Use standard anterolateral and anteromedial arthroscopy portals. Did a full diagnostic arthroscopy. There is signs of calcific gouty deposits throughout the cartilage in the knee. Ligamentum mucosum debrided removed. ACL and PCL appeared normal. There is some minor amount of fraying to the medial and lateral meniscus. There is an immediate effusion is seen as a put the arthroscope intra articularly. I thoroughly irrigated debrided all 3 compartments did a partial synovectomy as well as used 6 L of normal saline. Took arthroscopy pictures throughout the case. Did a partial lateral meniscectomy for some slight fraying of that meniscus. Case terminated tourniquet let down. Wound cleaned with wet and dry dressing followed application as 10 cc core percent bupivacaine Steri-Strips Adaptic 4 x 4 gauze and Boy wrap loosely wrapped around the knee. Patient woken up from the general anesthetic transferred off the operating table taken postanesthetic care unit in stable condition. All sponge needle instrument counts were correct no complications plan for the patient admitted under the hospitalist service IV antibiotics awaiting final cultures and infectious disease consultation. CPT 64780, 08476 Surgical Findings: as above Complications Complications: No Admit VTE Documentation VTE Present on Admission: No VTE Mechan Device Prophylaxis: SCD's VTE Pharm Prophylaxis ordered?: No Reason prophylaxis not ordered: Treatment Not Indicated
--- NOTE | 2024-09-26 12:06 | PCM.POST.ANE ---
Anesthesia: Postop Eval I Current Vital Signs Temperature: 97.9 F Pulse Rate: 99 Blood Pressure: 133/84 Respiratory Rate: 18 Pulse Ox: 96 Oxygen Delivery Method: Nasal Cannula Assessment Airway patent: Yes Spontaneous unlabored respirations: Yes Mental status: Calm nausea: No Vomiting: No Anesthesia Complication: No Fluid Hydration Crystalloid volume administer (ml): 500 Total IV fluid infused: 500 Progress Note Anesthesia document: Postop Eval 1 completed: Yes
[2024-09-26] MEDS: Cefepime HCl 1 GM in 0.9% Normal Saline (50mL MB+) 50 ML IV ×2 (13:30→21:57)
--- NOTE | 2024-09-26 13:32 | POSTOPAN2_ITS ---
Anesthesia Postop Eval I Sum Postop Eval Completion status Anesthesia document: Postop Eval 1 completed: Yes Anesthesia Postop Eval I Summary Anesthesia Postop Eval I Summary: Anesthesia Postop Eval I: Assessment Summary Airway patent Yes 09/26/24 12:08 CERTIFIED DIALYSIS TECHNICIAN.[email or web address] Spontaneous unlabored Yes 09/26/24 12:08 CERTIFIED DIALYSIS TECHNICIAN.JRIV respirations Mental status Calm 09/26/24 12:08 CERTIFIED DIALYSIS TECHNICIAN.JRIV nausea No 09/26/24 12:08 CERTIFIED DIALYSIS TECHNICIAN.JRIV Vomiting No 09/26/24 12:08 CERTIFIED DIALYSIS TECHNICIAN.[email or web address] Anesthesia Postop Eval I: Fluid Summary Crystalloid volume administer 500 09/26/24 12:08 CERTIFIED DIALYSIS TECHNICIAN.JRIV (ml) Colloids volume administered ( ml) Blood Product volume administered (ml) Total IV fluid infused 500 09/26/24 12:08 CERTIFIED DIALYSIS TECHNICIAN.[email or web address] Anesthesia Postop Eval I: Summary Notes Anesthesia Complication No 09/26/24 12:08 CERTIFIED DIALYSIS TECHNICIAN.JRIV Anesthesia Complication Comment: Post-operative progress note Anesthesia: Postop Eval II Evaluation Mental status: Awake Pain Level: 2 nausea: No Vomiting: No
--- NOTE | 2024-09-26 13:32 | PCM.POSTANE2 ---
Anesthesia Postop Eval I Sum Postop Eval Completion status Anesthesia document: Postop Eval 1 completed: Yes Anesthesia Postop Eval I Summary Anesthesia Postop Eval I Summary: Anesthesia Postop Eval I: Assessment Summary Airway patent Yes 09/26/24 12:08 CASH MANAGEMENT COORDINATOR.[email or web address] Spontaneous unlabored Yes 09/26/24 12:08 CASH MANAGEMENT COORDINATOR.JRIV respirations Mental status Calm 09/26/24 12:08 CASH MANAGEMENT COORDINATOR.JRIV nausea No 09/26/24 12:08 CASH MANAGEMENT COORDINATOR.JRIV Vomiting No 09/26/24 12:08 CASH MANAGEMENT COORDINATOR.JRIV Anesthesia Postop Eval I: Fluid Summary Crystalloid volume administer 500 09/26/24 12:08 CASH MANAGEMENT COORDINATOR.JRIV (ml) Colloids volume administered ( ml) Blood Product volume administered (ml) Total IV fluid infused 500 09/26/24 12:08 CASH MANAGEMENT COORDINATOR.JRIV Anesthesia Postop Eval I: Summary Notes Anesthesia Complication No 09/26/24 12:08 CASH MANAGEMENT COORDINATOR.JRIV Anesthesia Complication Comment: Post-operative progress note Anesthesia: Postop Eval II Evaluation Mental status: Awake Pain Level: 2 nausea: No Vomiting: No
--- NOTE | 2024-09-26 14:04 | PCM.HP.STD ---
HPI - General General Date of Admission: 09/26/24 Date of Service: 09/26/24 Chief Complaint: Left knee swollen and painful since Tuesday HPI Narrative PABLITO QUINN, is a 64 M with history of chronic gout since age of 20 came to ED with swelling and pain left knee gradually over last 1 week. Slipped on the ice on Tuesday and that exacerbated his pain. He stated he has chronic pain on the left ankle also from the gout. Denies any fever or chill. Patient could not stand up or walk this morning therefore called ambulance and patient was brought to [facility] ED. As per EMS states patient has 1 week history left knee pain. EMS took blood pressure was high at 200 systolic. Heart rate 88/min. Patient had diagnostic arthrocentesis in ED shows crystals were negative but high WBC count therefore admitted as left knee septic arthritis or inflammatory arthritis. [facility] Medical History Septic joint of left knee joint Gout Hypertension Home Medications ?Medication ?Instructions ?Recorded ?Last Taken ?Type lisinopril 10 mg tablet 40 mg PO BID 06/14/13 09/09/13 History allopurinol 100 mg tablet 100 mg PO DAILY 03/03/15 Unknown History hydrochlorothiazide 12.5 mg tablet 12.5 mg PO BID 09/26/24 Unknown History Allergy/AdvReac Type Severity Reaction Status Date / Time propoxyphene napsylate (From Allergy Rash Verified 09/26/24 04:09 Darvocet-N 100) tramadol HCl (From Ultram) AdvReac Upset Verified 09/26/24 04:09 Stomach Surgical History Finger amputation, traumatic S/P right knee arthroscopy Social History Smoking Status: Never smoker ROS ROS Narrative Constitutional: Reports fatigue and weakness. No fever. 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 He speech problem from that. Reports systems reviewed and no addt'l complaints, except as documented Respiratory/Chest: No acute shortness of breath or respiratory distress or wheezing. CVS: Denies any chest pain or chronic cardiac disease Gastrointestinal: Denies coffee ground emesis, hematemesis or vomiting Genitourinary: Denies burning urination or new urinary tract symptoms Musculoskeletal: Traumatic left hand finger amputation. History of gout. Denies acute joint pain or limited range of motion. No acute injury Neurologic: Denies seizure-like symptoms. skin: No ulcer. No rash Endocrinology: Reports systems reviewed and no addt'l complaints, except as documented Hematologic/Lymphatic: Reports systems reviewed and no addt'l complaints, except as documented Rest 14 ROS are negative except as mentioned in HPI Vital Signs Vital Signs Vital Signs: 09/26/24 04:10 09/26/24 06:00 09/26/24 08:00 Temperature 98.5 F Temperature Source Oral Pulse Rate 82 66 67 Pulse Strength Respiratory Rate 16 18 18 Respiratory Pattern Blood Pressure 189/99 H 181/104 H 189/102 H Blood Pressure Mean 129 129 131 Blood Pressure Source Blood Pressure Position Blood Pressure Location Baseline BP Pulse Ox 96 94 97 Oxygen Delivery Method Room Air Room Air Oxygen Flow Rate (L/min) 09/26/24 09:31 09/26/24 09:34 09/26/24 10:17 Temperature 98.1 F 98.1 F 98.1 F Temperature Source Oral Pulse Rate 68 68 68 Pulse Strength Respiratory Rate 16 18 18 Respiratory Pattern Blood Pressure 189/107 H 189/107 H 189/107 H Blood Pressure Mean 134 134 Blood Pressure Source Monitor Blood Pressure Position Semi-Fowlers Blood Pressure Location Left Arm Baseline BP Pulse Ox 97 98 98 Oxygen Delivery Method Room Air Room Air Oxygen Flow Rate (L/min) 09/26/24 12:00 09/26/24 12:00 09/26/24 12:05 Temperature 97.2 F L Temperature Source Temporal Pulse Rate 66 67 Pulse Strength Weak (1+) Respiratory Rate 16 16 Respiratory Pattern Normal Blood Pressure 133/84 H 154/90 H Blood Pressure Mean 100 111 Blood Pressure Source Monitor Monitor Blood Pressure Position Supine Supine Blood Pressure Location Left Arm Baseline BP 189/99 189/99 Pulse Ox 100 100 Oxygen Delivery Method Nasal Cannula Nasal Cannula Oxygen Flow Rate (L/min) 3 3 09/26/24 12:08 09/26/24 12:10 09/26/24 12:15 Temperature 97.9 F Temperature Source Pulse Rate 99 66 67 Pulse Strength Respiratory Rate 18 16 16 Respiratory Pattern Blood Pressure 133/84 H 161/93 H 179/98 H Blood Pressure Mean 115 125 Blood Pressure Source Monitor Monitor Blood Pressure Position Semi-Fowlers Semi-Fowlers Blood Pressure Location Right Arm Left Arm Baseline BP 189/99 189/99 Pulse Ox 96 100 100 Oxygen Delivery Method Nasal Cannula Room Air Room Air Oxygen Flow Rate (L/min) 09/26/24 12:30 09/26/24 13:10 Temperature 97.5 F L Temperature Source Temporal Pulse Rate 63 Pulse Strength Respiratory Rate 16 Respiratory Pattern Normal Blood Pressure 175/98 H Blood Pressure Mean 123 Blood Pressure Source Monitor Blood Pressure Position Semi-Fowlers Blood Pressure Location Right Arm Baseline BP 189/99 Pulse Ox 100 Oxygen Delivery Method Room Air Oxygen Flow Rate (L/min) Weight Weight: 212 lb 4.882 oz Body Mass Index (BMI) 28.8 Physical Exam Narrative Seen and examined after the left knee arthroscopic knee washout in PACU Physical exam General: Alert, Oriented x3, Cooperative HEENT: Atraumatic, PERRLA, EOMI, Normocephalic Oral: Defect/hole in the soft palate midline, traumatic. Wears prosthesis. Hoarse/muffled speech but better with the prosthesis. No acute inflammation or lesion in oral pharyngeal region Neck: Supple, No JVD, Negative Carotid Bruits Chest wall/Lungs: Air entry diminished in bilateral lung bases. No crepitation/rhonchi Cardiovascular: Regular rate, Regular Rhythm, Normal S1, Normal S2, No M/G/R Abdomen: Bowel Sounds Present, Soft, Non Tender, Non-Distended : No dysuria. No renal angle tenderness. No suprapubic tenderness. Extremities: No edema, Capillary Refill Less than 3 Seconds Skin: Left knee with Boy wrap bandage. Musculoskeletal: Tenderness over left knee. Mild tenderness over left ankle. 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 No Tenderness to Palpation of other joints or Extremities Neurological: Cranial nerves II-XII grossly intact, DTR 2+/4. No acute focal neurological deficit. Psych/Mental Status: Normal Affect, Appropriate. Results Lab / Micro Data 09/26/24 04:35 09/26/24 04:35 Labs: Laboratory Results - last 24 hr 09/26/24 04:35: WBC 13.7 H, RBC 5.55, Hgb 15.8, Hct 45.0, MCV 81.1, MCH 28.5, MCHC 35.1, RDW Std Deviation 38.5, RDW Coeff of Gopi 13.3, Plt Count 308, MPV 10.0, Immature Gran % (Auto) 0.700, Neut % (Auto) 80.2 H, Lymph % (Auto) 6.9 L, [place] % (Auto) 11.2 H, Eos % (Auto) 0.4, Baso % (Auto) 0.6, Absolute Neuts (auto) 11.0 H, Absolute Lymphs (auto) 0.94, Nucleated RBC % 0, Differential Comment SCANNED, Diff Path Review May foll, ESR 57 H, Sodium 130 L, Potassium 3.3 L, Chloride 96 L, Carbon Dioxide 23.0, Anion Gap 11, BUN 27 H, Creatinine 1.47 H, Estim Creat Clear Calc 62.70, Est GFR (MDRD) Af Amer 62, Est GFR (MDRD) Non-Af 52 L, BUN/Creatinine Ratio 18.4, Glucose 108 H, Lactic Acid 1.3, Uric Acid 7.6 H, Calcium 9.1, Magnesium 1.4 L, C-React Prot Ext Range 186.00 H 09/26/24 05:26: Fluid Crystals See PATH REV, Fluid Crystal Source SYNOVIAL, Synovial Source L KNEE, Synovial Color Yellow, Synovial Appearance Turbid, Synovial WBC 31.6000 H, Synovial RBC 0.003 H, Synovial Tot Cell Ct 31.7000 H, Synov Polynuclear WBCs 32.445, Synov Mononuclear WBCs 1.661, Synovial Neutrophils 97 H, Synovial Monocytes 3, Synovial Polynuclear % 95.1, Synovial Mononuclear % 4.9, Synovial Path Comment May follow Micro: Microbiology 09/26/24 05:26 Fluid - Synovial (joint) Gram Stain - Final Imaging Radiology Impression Knee X-Ray 09/26/24 04:28 IMPRESSION: KNEE JOINT EFFUSION. WITH A HISTORY OF TRAUMA AND NO VISIBLE FRACTURE, INTERNAL DERANGEMENT CANNOT BE EXCLUDED. Reading Location: [facility] Assessment & Plan Assessment/Plan (1) Septic joint of left knee joint: (2) Effusion of left knee joint: PLAN: Plan This 64-year-old gentleman admitted with 1 week history of left knee pain and swelling with suspicion of his left knee septic arthritis 1. Left knee septic/inflammatory arthritis: Patient is being admitted on MedSu but is still in PACU. Left knee synovial fluid analysis shows WBC 31.6K, polymorphs 95%, mononuclear 4.9%. He does yellow turbid in color. Patient is started on IV vancomycin and cefepime. Gram stain shows 3+ WBCs but no organisms. ID consult 2. History of chronic gouty arthritis: Serum uric acid is 7.6. Patient on allopurinol 100 mg daily continued. Motrin low-dose for acute knee pain 3. Hypertension: EMS vitals show systolic blood pressure 200 mmHg. Most recent 189/99. Started on carvedilol and hydralazine oral. Home medication HCTZ and lisinopril held. 4. TERRY or progressive worsening of CKD: Patient BUN/creatinine was 10/1.0 in November 2018 and no labs afterwards it is 27/1.47. IV fluid ordered. UA is ordered. Patient denies any burning pain or acute lower urine tract symptoms Living will/advanced directive/end of life care: Patient does not have living will or advanced directive. He does not want regular power of civil litigation attorney for health. After discussion of benefits/risks procedures involved with full code, DNR CC arrest and DNR CC, the patient opted for full code. Patient does want artificial life support including intubation, tube feed, ventilator and/chest compression, central venous catheter, vasopressor and DC shock if needed Total time spent in [id number] encounter in discussion of advanced directive 17 minutes. Microbiology Past 72 Hours 09/26/24 05:26 Fluid - Synovial (joint) Gram Stain - Final Laboratory Results 09/26/24 04:35: WBC 13.7 H, RBC 5.55, Hgb 15.8, Hct 45.0, MCV 81.1, MCH 28.5, MCHC 35.1, RDW Std Deviation 38.5, RDW Coeff of Gopi 13.3, Plt Count 308, MPV 10.0, Immature Gran % (Auto) 0.700, Neut % (Auto) 80.2 H, Lymph % (Auto) 6.9 L, [place] % (Auto) 11.2 H, Eos % (Auto) 0.4, Baso % (Auto) 0.6, Absolute Neuts (auto) 11.0 H, Absolute Lymphs (auto) 0.94, Nucleated RBC % 0, Differential Comment SCANNED, Diff Path Review December, ESR 57 H, Sodium 130 L, Potassium 3.3 L, Chloride 96 L, Carbon Dioxide 23.0, Anion Gap 11, BUN 27 H, Creatinine 1.47 H, Estim Creat Clear Calc 62.70, Est GFR (MDRD) Af Amer 62, Est GFR (MDRD) Non-Af 52 L, BUN/Creatinine Ratio 18.4, Glucose 108 H, Lactic Acid 1.3, Uric Acid 7.6 H, Calcium 9.1, Magnesium 1.4 L, C-React Prot Ext Range 186.00 H 09/26/24 05:26: Fluid Crystals See PATH REV, Fluid Crystal Source SYNOVIAL, Synovial Source L KNEE, Synovial Color Yellow, Synovial Appearance Turbid, Synovial WBC 31.6000 H, Synovial RBC 0.003 H, Synovial Tot Cell Ct 31.7000 H, Synov Polynuclear WBCs 32.445, Synov Mononuclear WBCs 1.661, Synovial Neutrophils 97 H, Synovial Monocytes 3, Synovial Polynuclear % 95.1, Synovial Mononuclear % 4.9, Synovial Path Comment May follow, Synovial Glucose Pending Clinical Impression(s) from Imaging Studies Knee X-Ray 09/26/24 04:28 IMPRESSION: KNEE JOINT EFFUSION. WITH A HISTORY OF TRAUMA AND NO VISIBLE FRACTURE, INTERNAL DERANGEMENT CANNOT BE EXCLUDED. Charges/Coding Visit Charges Inpatient E&M: 11530 Init Hosp L3 Procedures Hospitalists Procedures: 53367 Advncd Care Plan 30 Min
[2024-09-26] MEDS: Vancomycin HCl 1,500 MG in 0.9% Normal Saline (500mL Bag) 500 ML 250 MG IV (14:09)
--- NOTE | 2024-09-26 16:39 | PCM.RX.CS ---
Consult Antibiotic Management Pharmacy has been consulted to manage selected antibiotic: Vancomycin Type of Intervention Type of Consult: New start Suspected Infection Suspected Infection: Other (septic arthritis) Labs Labs: Sodium 130 mmol/L (136-145) L 09/26/24 04:35 Potassium 3.3 mmol/L (3.5-5.1) L 09/26/24 04:35 Chloride 96 mmol/L (98-107) L 09/26/24 04:35 Carbon Dioxide 23.0 mmol/L (21.0-32.0) 09/26/24 04:35 Anion Gap 11 (5-15) 09/26/24 04:35 BUN 27 mg/dL (7-18) H 09/26/24 04:35 Creatinine 1.47 mg/dL (0.70-1.30) H 09/26/24 04:35 Est GFR (MDRD) Af Amer 62 mL/min (>60) 09/26/24 04:35 Est GFR (MDRD) Non-Af 52 mL/min (>60) L 09/26/24 04:35 BUN/Creatinine Ratio 18.4 RATIO (10-20) 09/26/24 04:35 Glucose 108 mg/dL (74-106) H 09/26/24 04:35 Microbiology Microbiology: Microbiology 09/26/24 05:26 Fluid - Synovial (joint) Gram Stain - Final Pharmacy Plan for Drug Dosing Pharmacy Plan for Drug Dosing: NEW START IV VANCOMYCIN Consulting Physician: Saul Indication: septic arthritis Goal Trough: 15-20 mg/dL SrCr: 1.47 mg/dL CrCl: 62 mL/min Comments: initial standard dose of 1500mg given 09/26 @ 1409 Vancomycin Dose: Will start 1250mg Q12 09/27 @ 0200 and get a trough prior to 4th total dose. Pending Level: 09/28/24 @ 0130 Pharmacy Service will continue to monitor and adjust dosing as required.
[2024-09-26] MEDS: KCL 40mEq in 0.9% NS 40 MEQ/1,000 ML IV.SOLN 100 MEQ IV (16:54)
[2024-09-26] MEDS: Carvedilol 6.25 MG Tablet PO (16:55)
[2024-09-26] MEDS: amLODIPine 10 MG Tablet PO (16:56)
[2024-09-26] MEDS: hydrALAZINE 20 MG/ML Vial 10 MG IV (18:52)
[2024-09-26] MEDS: 0.9% Saline Lock 10 ML Syringe IV (18:53)
[2024-09-26 19:57] LABS: Osmolality, Serum 292 mOsm/KG (280-301)
[2024-09-26] MEDS: hydrALAZINE 50 MG Tablet PO (21:40)
[2024-09-26] MEDS: Heparin Injection (Vial) 5,000 UNIT/ML VIAL 5000 UNIT SC (21:41)
[2024-09-26 23:30] LABS: Amphetamine Urine POSITIVE (<1000 ng/mL); Barbiturate Urine VISTA NEGATIVE (< 200 ng/mL); Benzodiazepine Urine VISTA NEGATIVE (< 200 ng/mL); Cocaine Urine VISTA NEGATIVE (< 300 ng/mL); Ecstacy Urine VISTA NEGATIVE (< 500 ng/mL); Methadone Urine VISTA NEGATIVE (< 300 ng/mL); Opiates Urine NEGATIVE (< 300 ng/mL); PCP Urine NEGATIVE (< 25 ng/mL); THC Urine VISTA NEGATIVE (< 50 ng/mL); Vista UDS pH Range 5
[2024-09-27] VITALS (10 sets, daily range): BP systolic 137–155; BP diastolic 71–82; PULSE 62–68; RESP 16–18; TEMP 36.6–36.9; O2SAT 96–100; BMI 28.5
[2024-09-27] MEDS: Morphine 2 MG/ML Syringe IV (00:41)
[2024-09-27] MEDS: Vancomycin HCl 1,250 MG in 0.9% Normal Saline (250mL Bag) 250 ML 167 MG IV (02:20)
[2024-09-27] MEDS: oxyCODONE 5 MG Tablet PO ×4 (02:20→22:34)
[2024-09-27] MEDS: KCL 40mEq in 0.9% NS 40 MEQ/1,000 ML IV.SOLN 100 MEQ IV (05:02)
[2024-09-27] MEDS: Cefepime HCl 1 GM in 0.9% Normal Saline (50mL MB+) 50 ML IV (05:03)
[2024-09-27] MEDS: hydrALAZINE 50 MG Tablet PO ×3 (06:05→22:23)
[2024-09-27] MEDS: Ibuprofen 400 MG Tablet PO ×2 (06:11→22:34)
[2024-09-27 06:55] LABS: Absolute Lymphocyte Count 1.34 X10^3/uL (0.83-4.51); Absolute Neutrophil Count 7.1 X10^3/uL (2.0-7.7); Basophil# 0.15 X10^3/uL; Basophil% 1.5 % (0-1); Eosinophil# 0.38 X10^3/uL; Eosinophils% 3.8 % (0-5); Hematocrit 41.9 % (40-54); Hemoglobin 14.4 g/dL (13.0-16.5); Lymphocyte # 1.34 X10^3/ul (0.83-4.51); Lymphocyte % 13.3 % (19-41); Mean Corp Hgb Conc 34.4 g/dL (32-36); Mean Corpuscular Hgb 28.9 pg (27.0-32.0); Mean Platelet Vol. 9.8 fl (6.2-12.0); Monocyte# 0.98 X10^3/uL; Monocyte% 9.7 % (0-10); NRBC Flagged by Analyzer 0 % (0-5); Neutrophil # 7.14 X10^3/uL (2.7-7.7); Platelet Count 271 K/mm3 (150-450); RBC Distribution Width SD 42.4 fl (35.1-43.9); Red Blood Count 4.99 M/mm3 (4.6-6.2); White Blood Count 10.1 K/mm3 (4.4-11.0)
[2024-09-27 07:22] LABS: Anion Gap 6 (5-15); BUN 28 mg/dL (7-18); BUN/Creat Ratio 21.4 RATIO (10-20); Calcium,Total 8.3 mg/dL (8.5-10.1); Chloride 110 mmol/L (98-107); Creatinine, Serum 1.31 mg/dL (0.70-1.30); EST Glomerular Filtration Rate 59 mL/min (>60); Est Glom Filt Rate - Afr Amer 71 mL/min (>60); Estimated Creatinine Clearance 70.06 ml/min; Glucose 93 mg/dL (74-106); Sodium Level 137 mmol/L (136-145)
[2024-09-27 08:23] LABS: Pathologist Comment Reviewed
[2024-09-27 08:46] LABS: Pathologist Review Reviewed
[2024-09-27] MEDS: amLODIPine 10 MG Tablet PO (09:11)
[2024-09-27] MEDS: Allopurinol 100 MG Tablet PO (09:11)
[2024-09-27] MEDS: Carvedilol 6.25 MG Tablet PO ×2 (09:12→18:16)
[2024-09-27] MEDS: Heparin Injection (Vial) 5,000 UNIT/ML VIAL 5000 UNIT SC ×2 (09:12→22:24)
--- NOTE | 2024-09-27 10:35 | CASEMGMT ---
LISETH HOSKINS Assessment: Face to Face with pt for initial transition planning/care coordination assessment. LISETH HOSKINS introduced self and role at [facility], pt voices understanding and consents to assessment. Pt is A&O x4 and answers all questions appropriately at this time. Pt lying in bed in no distress. Care providers, pharmacy, and demographics verified/updated. Admitting Dx: lower extremity injury Strata Score: 1 PCP:Kacey Specialists:Denies Preferred Pharmacy:[facility] Insurance: [facility] Dual Complete Prescription Benefit: yes LNOK: Jossy Lama, sister Living Arrangements: Pt lives alone in a two story home with 8 or 9 steps to enter with a rail. Pt reports he typically is I in ADL/IADLs. Pt denies concerns at home. Transportation: Pt has a license but does not have a car. Pt walks or uses [employer] bus for transportation. DME:cane HHC/SNF:Denies hx of Pt states no concerns with going home at time of dc. Pt states no further concerns/needs. CM to follow. Advised pt to ask CM if any further questions/concerns/needs arise, voices understanding. Pt Goal: Home Plan: Home pending therapy eval (not ordered but will check with hospitalist) and ID c/s. Ritchie CHILDERS CM
--- NOTE | 2024-09-27 10:57 | PCM.CONS.GEN ---
Assessment & Plan Assessment/Plan (1) Gout: PLAN: Taken to OR 09/26/[address] Guthrie for I&D of possible L knee septic arthritis. Cxs neg so far. Fluid review by path reports numerous monosodium urate crystals. Will stop abx now and monitor. Will follow, thank you HPI Consult Data Date of Consult: 09/27/24 HPI Narrative Reason for Consultation: septic arthritis HPI Narrative: PABLITO QUINN, is a 64 M with long h/o gout, presented with one week L knee progressive pain, redness, swelling. no fever, no known inciting event. Came to ED, taken to OR 09/[address] Guthrie for I&D. Now on vanz/cefepime. Feeling ok this AM, no n/v/d. Full ROS performed and neg except as noted above. [facility] Medical History Septic joint of left knee joint Gout Hypertension Home Medications ?Medication ?Instructions ?Recorded ?Last Taken ?Type lisinopril 10 mg tablet 40 mg PO BID 06/14/13 09/25/24 08:00 History allopurinol 100 mg tablet 100 mg PO DAILY 03/03/15 Unknown History albuterol sulfate 90 mcg/actuation 1 inh inhalation BID copd 09/26/24 09/25/24 08:00 History aerosol inhaler (Ventolin HFA) hydrochlorothiazide 12.5 mg tablet 12.5 mg PO BID 09/26/24 09/25/24 08:00 History Allergy/AdvReac Type Severity Reaction Status Date / Time propoxyphene napsylate (From Allergy Rash Verified 09/26/24 04:09 Darvocet-N 100) tramadol HCl (From Ultram) AdvReac Upset Verified 09/26/24 04:09 Stomach Surgical History Finger amputation, traumatic S/P right knee arthroscopy Social History Smoking Status: Never smoker Physical Exam Const alert, oriented x3 and no apparent distress General Appearance: cooperative HEENT normocephalic and head/scalp atraumatic Eyes PERRL and EOMs intact bilaterally Neck supple and No nodes Resp normal air movement and clear to auscultation bilaterally Cardio regular rate and regular rhythm GI soft to palpation, non-tender and non-distended Extremity Extremity Narrative: LLE wrapped Skin no rashes or lesions noted Neuro CN's II-XII intact bilaterally Lab / Micro Data Attestation: I reviewed the patient's lab results. 09/27/24 06:46 09/27/24 06:46 Labs: Laboratory Results - last 24 hr 09/26/24 04:35: Diff Path Review Reviewed 09/26/24 05:26: Synovial Path Comment Reviewed 09/26/24 17:31: Serum Osmolality 292 09/26/24 22:51: Urine Opiates Screen NEGATIVE, Urine Methadone Screen NEGATIVE, Ur Barbiturates Screen NEGATIVE, Ur Phencyclidine Scrn NEGATIVE, Ur Amphetamines Screen POSITIVE H, MDMA (Ecstasy) Screen NEGATIVE, U Benzodiazepines Scrn NEGATIVE, Urine Cocaine Screen NEGATIVE, U Cannabinoids Screen NEGATIVE, Ur Drug Screen Comment 09/27/24 06:46: WBC 10.1, RBC 4.99, Hgb 14.4, Hct 41.9, MCV 84.0, MCH 28.9, MCHC 34.4, RDW Std Deviation 42.4, RDW Coeff of Gopi 14.0, Plt Count 271, MPV 9.8, Immature Gran % (Auto) 0.700, Neut % (Auto) 71.0 H, Lymph % (Auto) 13.3 L, Wright % (Auto) 9.7, Eos % (Auto) 3.8, Baso % (Auto) 1.5 H, Absolute Neuts (auto) 7.1, Absolute Lymphs (auto) 1.34, Nucleated RBC % 0, Sodium 137, Potassium 4.0, Chloride 110 H, Carbon Dioxide 21.0, Anion Gap 6, BUN 28 H, Creatinine 1.31 H, Estim Creat Clear Calc 70.06, Est GFR (MDRD) Af Amer 71, Est GFR (MDRD) Non-Af 59 L, BUN/Creatinine Ratio 21.4 H, Glucose 93, Calcium 8.3 L Micro: Microbiology 09/26/24 05:26 Fluid - Synovial (joint) Gram Stain - Final 09/26/24 05:26 Fluid - Synovial (joint) Body Fluid Culture - Preliminary No growth-Final to follow
--- NOTE | 2024-09-27 11:43 | PN.ORTHO_ITS ---
Subjective Subjective POD 1 L knee scope, i and d possible SA versus gout. doing well. no pain. no concerns. Objective Data Objective Data Vital Signs: Vital Signs Temp Pulse Resp BP Pulse Ox O2 Del Method O2 Flow Rate 97.9 F 62 18 141/80 H 96 Room Air 3 09/27/24 08:30 09/27/24 08:30 09/27/24 08:30 09/27/24 08:30 09/27/24 11:04 09/27/24 11:04 09/26/24 12:05 Oxygen Flow Rate (L/min) 3 Oxygen Delivery Method Room Air Weight: 210 lb 5.136 oz Body Mass Index (BMI) 28.5 Intake & Output: Intake and Output for Last 24 Hours 09/25/24 09/26/24 09/27/24 23:59 23:59 23:59 Intake Total 1630 / 1870 1615 / 1615 Output Total 300 / 300 Balance 1630 / 1870 1315 / 1315 Lab / Micro Data Attestation: I reviewed the patient's lab results. 09/27/24 06:46 09/27/24 06:46 Labs: Laboratory Results - last 24 hr 09/26/24 04:35: Diff Path Review Reviewed 09/26/24 05:26: Synovial Path Comment Reviewed 09/26/24 17:31: Serum Osmolality 292 09/26/24 22:51: Urine Opiates Screen NEGATIVE, Urine Methadone Screen NEGATIVE, Ur Barbiturates Screen NEGATIVE, Ur Phencyclidine Scrn NEGATIVE, Ur Amphetamines Screen POSITIVE H, MDMA (Ecstasy) Screen NEGATIVE, U Benzodiazepines Scrn NEGATIVE, Urine Cocaine Screen NEGATIVE, U Cannabinoids Screen NEGATIVE, Ur Drug Screen Comment 09/27/24 06:46: WBC 10.1, RBC 4.99, Hgb 14.4, Hct 41.9, MCV 84.0, MCH 28.9, MCHC 34.4, RDW Std Deviation 42.4, RDW Coeff of Gopi 14.0, Plt Count 271, MPV 9.8, Immature Gran % (Auto) 0.700, Neut % (Auto) 71.0 H, Lymph % (Auto) 13.3 L, T[place]air % (Auto) 9.7, Eos % (Auto) 3.8, Baso % (Auto) 1.5 H, Absolute Neuts (auto) 7.1, Absolute Lymphs (auto) 1.34, Nucleated RBC % 0, Sodium 137, Potassium 4.0, C hloride 110 H, Carbon Dioxide 21.0, Anion Gap 6, BUN 28 H, Creatinine 1.31 H, Estim Creat Clear Calc 70.06, Est GFR (MDRD) Af Amer 71, Est GFR (MDRD) Non-Af 59 L, BUN/Creatinine Ratio 21.4 H, Glucose 93, Calcium 8.3 L Micro: Microbiology 09/26/24 05:26 Fluid - Synovial (joint) Gram Stain - Final 09/26/24 05:26 Fluid - Synovial (joint) Body Fluid Culture - Preliminary No growth-Final to follow Physical Exam Const alert and no apparent distress Extremity Extremity Narrative: knee slight swelling, drsg intact, mild strikethrough on the adaptic. nvi. Assessment & Plan Assessment/Plan (1) Septic joint of left knee joint: PLAN: 64 M pod 1 L knee I and D. Change dressing q1-2 days. Pending cultures. Pending ID consult. Will follow. WBAT and AAT. (2) Effusion of left knee joint: (3) Gout:
[2024-09-27 12:08] LABS: GLUCOSE, SYNOVIAL FLUID < 2 mg/dL (.); PROTEIN, SYNOVIAL FLUID 5.1 g/dL (.)
--- NOTE | 2024-09-27 12:34 | NURSING ---
This RN is aware of Vital Signs taken this morning by Karen Arora Tool Crib Supervisor from the [facility].
[2024-09-27] MEDS: FLU VACC 2024-25(6MOS UP)/PF 45 MCG/0.5 ML SYRINGE IM (14:50)
--- NOTE | 2024-09-27 17:01 | PN.HOSP_ITS ---
Reason for Visit Reason for Visit: Diagnoses Pyogenic arthritis, unspecified (09/26/24) Gout, unspecified (09/26/24) Effusion, left knee (09/26/24) Objective Data Objective Data Vital Signs: Vital Signs Temp Pulse Resp BP Pulse Ox O2 Del Method O2 Flow Rate 97.9 F 67 18 155/71 H 100 Room Air 3 09/27/24 15:00 09/27/24 15:00 09/27/24 15:00 09/27/24 15:00 09/27/24 15:00 09/27/24 15:30 09/26/24 12:05 Oxygen Flow Rate (L/min) 3 Oxygen Delivery Method Room Air Weight: 210 lb 5.136 oz Body Mass Index (BMI) 28.5 Intake & Output: Intake and Output for Last 24 Hours 09/25/24 09/26/24 09/27/24 23:59 23:59 23:59 Intake Total 1630 / 1870 2615 / 2615 Output Total 475 / 475 Balance 1630 / 1870 2140 / 2140 Lab / Micro Data 09/27/24 06:46 09/27/24 06:46 Labs: Laboratory Results - last 24 hr 09/26/24 04:35: Diff Path Review Reviewed 09/26/24 05:26: Synovial Path Comment Reviewed, Synovial Glucose < 2 09/26/24 17:31: Serum Osmolality 292 09/26/24 22:51: Urine Opiates Screen NEGATIVE, Urine Methadone Screen NEGATIVE, Ur Barbiturates Screen NEGATIVE, Ur Phencyclidine Scrn NEGATIVE, Ur Amphetamines Screen POSITIVE H, MDMA (Ecstasy) Screen NEGATIVE, U Benzodiazepines Scrn NEGATIVE, Urine Cocaine Screen NEGATIVE, U Cannabinoids Screen NEGATIVE, Ur Drug Screen Comment 09/27/24 06:46: WBC 10.1, RBC 4.99, Hgb 14.4, Hct 41.9, MCV 84.0, MCH 28.9, MCHC 34.4, RDW Std Deviation 42.4, RDW Coeff of Gopi 14.0, Plt Count 271, MPV 9.8, Immature Gran % (Auto) 0.700, Neut % (Auto) 71.0 H, Lymph % (Auto) 13.3 L, Hawkins % (Auto) 9.7, Eos % (Auto) 3.8, Baso % (Auto) 1.5 H, Absolute Neuts (auto) 7.1, Absolute Lymphs (auto) 1.34, Nucleated RBC % 0, Sodium 137, Potassium 4.0, C hloride 110 H, Carbon Dioxide 21.0, Anion Gap 6, BUN 28 H, Creatinine 1.31 H, Estim Creat Clear Calc 70.06, Est GFR (MDRD) Af Amer 71, Est GFR (MDRD) Non-Af 59 L, BUN/Creatinine Ratio 21.4 H, Glucose 93, Calcium 8.3 L Micro: Microbiology 09/26/24 05:26 Fluid - Synovial (joint) Gram Stain - Final 09/26/24 05:26 Fluid - Synovial (joint) Body Fluid Culture - Preliminary No growth-Final to follow Physical Exam Narrative Seen and examined Patient left knee is swollen but no severe pain. Physical exam General: Alert, Oriented x3, Cooperative HEENT: Atraumatic, PERRLA, EOMI, Normocephalic Oral: Defect/hole in the soft palate midline, traumatic. Wears prosthesis. No acute inflammation or lesion in oral pharyngeal region Neck: Supple, No JVD, Negative Carotid Bruits Chest wall/Lungs: Air entry diminished in bilateral lung bases. No crepitation/rhonchi Cardiovascular: Regular rate, Regular Rhythm, Normal S1, Normal S2, No M/G/R Abdomen: Bowel Sounds Present, Soft, Non Tender, Non-Distended : No dysuria. No renal angle tenderness. No suprapubic tenderness. Extremities: No edema, Capillary Refill Less than 3 Seconds Skin: Left knee with Boy wrap bandage. 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 No Tenderness to Palpation of other joints or Extremities Neurological: Cranial nerves II-XII grossly intact, DTR 2+/4. No acute focal neurological deficit. Psych/Mental Status: Normal Affect, Appropriate. Assessment & Plan Assessment/Plan (1) Septic joint of left knee joint: (2) Effusion of left knee joint: PLAN: Plan This 64-year-old gentleman admitted with 1 week history of left knee pain and swelling with suspicion of his left knee septic arthritis 1. Left knee septic/inflammatory arthritis possible acute gouty arthritis: Patient is being admitted on MedSurg but is still in PACU. Left knee synovial fluid analysis shows WBC 31.6K, polymorphs 95%, mononuclear 4.9%. He does yellow turbid in color. Patient is started on IV vancomycin and cefepime. Gram stain shows 3+ WBCs but no organisms. ID consult 09/27: Fluid path review of path shows numerous monosodium urate crystals therefore antibiotic was started by ID. Monitor off antibiotic. Started on prednisone as patient cannot have NSAIDs because of TERRY. Patient already on allopurinol. 2. History of chronic gouty arthritis: Serum uric acid is 7.6. Patient on allopurinol 100 mg daily continued. Motrin low-dose for acute knee pain 3. Hypertension: EMS vitals show systolic blood pressure 200 mmHg. Most recent 189/99. Started on carvedilol and hydralazine oral. Home medication HCTZ and lisinopril held. 4. TERRY or progressive worsening of CKD: Patient BUN/creatinine was 10/1.0 in November 2018 and no labs afterwards it is 27/1.47. IV fluid ordered. UA is ordered. Patient denies any burning pain or acute lower urine tract symptoms 09/29: Serum osmole at 292, U tox positive of amphetamine. Creatinine improved to 1.31. Living will/advanced directive/end of life care: Patient does not have living will or advanced directive. He does not want regular power of personal injury attorney for health. After discussion of benefits/risks procedures involved with full code, DNR CC arrest and DNR CC, the patient opted for full code. Patient does want artificial life support including intubation, tube feed, ventilator and/chest compression, central venous catheter, vasopressor and DC shock if needed Total time spent in [id number] encounter in discussion of advanced directive 17 minutes. Microbiology Past 72 Hours 09/26/24 05:26 Fluid - Synovial (joint) Gram Stain - Final 09/26/24 05:26 Fluid - Synovial (joint) Body Fluid Culture - Preliminary No growth-Final to follow Laboratory Results 09/26/24 04:35: Diff Path Review Reviewed 09/26/24 05:26: Synovial Path Comment Reviewed, Synovial Glucose < 2 09/26/24 17:31: Serum Osmolality 292 09/26/24 22:51: Urine Opiates Screen NEGATIVE, Urine Methadone Screen NEGATIVE, Ur Barbiturates Screen NEGATIVE, Ur Phencyclidine Scrn NEGATIVE, Ur Amphetamines Screen POSITIVE H, MDMA (Ecstasy) Screen NEGATIVE, U Benzodiazepines Scrn NEGATIVE, Urine Cocaine Screen NEGATIVE, U Cannabinoids Screen NEGATIVE, Ur Drug Screen Comment 09/27/24 06:46: WBC 10.1, RBC 4.99, Hgb 14.4, Hct 41.9, MCV 84.0, MCH 28.9, MCHC 34.4, RDW Std Deviation 42.4, RDW Coeff of Gopi 14.0, Plt Count 271, MPV 9.8, Immature Gran % (Auto) 0.700, Neut % (Auto) 71.0 H, Lymph % (Auto) 13.3 L, Hawkins % (Auto) 9.7, Eos % (Auto) 3.8, Baso % (Auto) 1.5 H, Absolute Neuts (auto) 7.1, Absolute Lymphs (auto) 1.34, Nucleated RBC % 0, Sodium 137, Potassium 4.0, C hloride 110 H, Carbon Dioxide 21.0, Anion Gap 6, BUN 28 H, Creatinine 1.31 H, Estim Creat Clear Calc 70.06, Est GFR (MDRD) Af Amer 71, Est GFR (MDRD) Non-Af 59 L, BUN/Creatinine Ratio 21.4 H, Glucose 93, Calcium 8.3 L Clinical Impression(s) from Imaging Studies Knee X-Ray 09/26/24 04:28 IMPRESSION: KNEE JOINT EFFUSION. WITH A HISTORY OF TRAUMA AND NO VISIBLE FRACTURE, INTERNAL DERANGEMENT CANNOT BE EXCLUDED. Charges/Coding Visit Charges Inpatient E&M: 73751 Subs Hosp L2
[2024-09-27] MEDS: predniSONE 20 MG Tablet 40 MG PO (18:15)
[2024-09-27] MEDS: Pantoprazole Sodium 40 MG Tablet PO (18:16)
[2024-09-28 03:00] VITALS: BP 149/88; PULSE 84; RESP 16; TEMP 36.3; O2SAT 96
[2024-09-28] MEDS: oxyCODONE 5 MG Tablet PO (04:57)
[2024-09-28 04:58] VITALS: BP 149/88; PULSE 84
[2024-09-28] MEDS: Ibuprofen 400 MG Tablet PO (04:58)
[2024-09-28] MEDS: hydrALAZINE 50 MG Tablet PO ×2 (04:58→13:59)
[2024-09-28 05:35] VITALS: BMI 28.5
[2024-09-28 06:17] LABS: Bacteria 0 SEEN /hpf (None Seen); Mucous, Urine 0 SEEN /hpf (<or=2+); Squamous Epithelial Cells - UA 0 SEEN /hpf (0-5)
[2024-09-28 07:35] VITALS: O2SAT 96
[2024-09-28 07:45] LABS: Color, Urine Yellow (Yellow); Glucose, Dipstick Normal (Normal); Ketone-Dipstick Negative (Negative); Leukocyte Esterase-Dipstick Negative /ul (Negative); Nitrite-Dipstick Negative (Negative); Occult Blood-Urine 150 /ul (Negative); Protein-Dipstick 30 mg/dl (Negative); Specific Gravity, Urine 1.015 (1.002-1.030); Urine Bilirubin Dipstick Negative (Negative); Urine Clarity Clear (Clear); Urine Urobilinogen 1 mg/dl (Normal)
[2024-09-28 08:10] VITALS: BP 146/78; PULSE 82; RESP 16; TEMP 36.9; O2SAT 98
[2024-09-28 08:18] LABS: Red Blood Cells-Urine 5-10 SEEN /hpf (0-5); White Blood Cells 0-5 SEEN /hpf (0-5)
[2024-09-28] MEDS: predniSONE 20 MG Tablet 40 MG PO (08:25)
[2024-09-28] MEDS: Carvedilol 6.25 MG Tablet PO (08:25)
--- NOTE | 2024-09-28 09:10 | CASEMGMT ---
Addendum entered by Rosa M Naranjo 09/28/24 12:26: LISETH HOSKINS into pt room, discussed with pt outpt therapy. Pt states that he doesn't feel like he needs therapy. Discussed with pt the importance of therapy. He is aware that the RN GATO can set him up for this with the hospital van if transportation is the concern. Pt states it is not. Provided pt with outpt therapy rx in case he changes his mind. Pt aware that he can dc home with hospital van today if he is ready by 1pm, that is the only time available. Pt states that he will be in the streets then. Asked pt why he would be in the streets, he states he is living at [facility]. Pt states he has been living there for the last 5 years. Asked why he thought he wouldn't have his room, he states he will. LISETH HOSKINS unsure of the concern. Asked if pt would like to speak to SW regarding housing. Pt states he would. Pt states he had a house and lost it when he went to retirement 5 years ago. He states he does receive funds monthly. He is aware of the new custodial close to [facility] as well as the [employer] but he states you have to leave during the day. SW updated. Pt states he hasn't spoken to his family when discussing options for transportation home. Addendum entered by Rosa M Naranjo 09/28/24 11:15: [place] [facility] [place] [facility] at this time. Original Note: LISETH HOSKINS into pt room, discussed with pt need for FWW. Pt is agreeable to one. Provided pt with a verbal local in network DME list, pt chose [employer]. Discussed OP therapy with pt. Pt states he walks 6 miles per day and questions if he needs it. He is aware that this is recommended for him. Pt is agreeable to using the hospital van. He is aware that per the PT yesterday, they will work with him on the step up to get in the van. Pt is still hesitant about having therapy. He is aware that LISETH HOSKINS will meet with him after his therapy session today.
[2024-09-28] MEDS: Pantoprazole Sodium 40 MG Tablet PO (10:31)
[2024-09-28] MEDS: Heparin Injection (Vial) 5,000 UNIT/ML VIAL 5000 UNIT SC (10:31)
[2024-09-28] MEDS: Allopurinol 100 MG Tablet PO (10:32)
[2024-09-28] MEDS: amLODIPine 10 MG Tablet PO (10:32)
--- NOTE | 2024-09-28 10:48 | DCINST_ITS ---
Discharge Instructions Diet Discharge Diet: Light diet - advance as tolerated, Low fat / Low cholesterol and 2000 mg Sodium Diet DC O2, CPAP, BIPAP needs Home O2 Discharge instructions: No Dressing / Incision Discharge Activity: Return to Normal Activity Weight Bearing Status: Weight bearing as tolerated Dressing / Incision Call your doctor if you observe: Fever of 101 or Higher, Coldness, Increased Pain, Numbness or Tingling, Change in Color, Inability to urinate, Inability to have a bowel movement, Shortness of breath, Dizziness, Fainting spells, Swelling in the ankles, Chest pain, Prolonged hiccupping, Increased palpitations (irregular heartbeat) and Calf discomfort Follow Up Care When: IN 2 WEEKS Test Results: Test results from this visit will be discussed in further detail at your follow- up appointment, if applicable. Discharge Plan Admission Admit Date/Time: 09/26/24 09:30 Primary Reason for Your Visit: Gouty arthritis with TERRY Attending Provider: Amadou Hughes Primary Care Provider: Harvey Erazo Consulting Providers: Seferino Perez; Albino Guthrie Discharge Orders/Prescriptions Prescriptions: New carvedilol 6.25 mg Tablet 6.25 mg PO BIDCM 30 Days Qty: 60 0RF Rx Instructions: Hold if heart rate less than 60/min and if persistently low between 60-70/m, can decrease the dose to 25 mg twice daily in consultation his PCP amlodipine 10 mg Tablet 10 mg PO DAILY 30 Days Qty: 30 0RF hydralazine 50 mg Tablet 50 mg PO TID 30 Days Qty: 90 0RF prednisone 20 mg Tablet 30 mg PO BREAKFAST 5 Days Qty: 8 0RF pantoprazole 40 mg Tablet,Delayed Release (Dr/Ec) 40 mg PO DAILY 30 Days Qty: 30 0RF Continued albuterol sulfate [Ventolin HFA] 90 mcg/actuation HFA aerosol inhaler 1 inh inhalation BID Changed allopurinol 100 MG tablet 200 mg PO DAILY 30 Days Qty: 60 0RF Held lisinopril 10 MG tablet 40 mg PO BID Hold Instructions: Hold at least for 1 week followed PCP with repeat BMP. Recommended not to exceed lisinopril 40 mg daily hydrochlorothiazide 12.5 mg tablet 12.5 mg PO BID Hold Instructions: Hold for TERRY. Follow with PCP with repeat BMP Referrals / Follow Up: Harvey Erazo MD [Primary Care Provider] -
--- NOTE | 2024-09-28 11:55 | DS.PCM_ITS ---
Providers Date of Admission: 09/26/24 Date of Discharge: 09/28/24 Primary Care Physician: Dr. Harvey Erazo MD Consultations 09/26/24 15:12 Consult: Infectious Disease Routine Consulting Provider: Seferino Perez Reason for Consult: Left knee septic/inflammatory arthritis.H/o gout EMERGENT Consult: No Notified: Yes Date Notified: 09/26/24 Time Notified: 15:12 Method of Notification: Text 09/27/24 10:21 Consult: Orthopedics Routine Consulting Provider: Albino Guthrie Reason for Consult: LOWER EXTREMITY INJURY EMERGENT Consult: No Notified: Yes Date Notified: 09/27/24 Time Notified: 10:21 Method of Notification: ED Physician Initiated Comments:: SEEN PATIENT 09/26/24 already Reason For Visit: lower extremity injury Diagnosis Discharge Diagnosis (1) Septic joint of left knee joint: Status: Acute Code(s): M00.9 - Pyogenic arthritis, unspecified (2) Effusion of left knee joint: Status: Acute Code(s): M25.462 - Effusion, left knee Plan This 64-year-old gentleman admitted with 1 week history of left knee pain and swelling with suspicion of his left knee septic arthritis 1. Left knee inflammatory arthritis due to acute gouty arthritis: Patient is being admitted on MedSurg but is still in PACU. Left knee synovial fluid analysis shows WBC 31.6K, polymorphs 95%, mononuclear 4.9%. He does yellow turbid in color. Patient is started on IV vancomycin and cefepime. Gram stain shows 3+ WBCs but no organisms. ID consult 09/27: Fluid path review of path shows numerous monosodium urate crystals therefore antibiotic was started by ID. Monitor off antibiotic. Started on prednisone as patient cannot have NSAIDs because of TERRY. Patient already on allopurinol. 09/28: Leukocytosis resolved. Patient did not had fever monitored for more than 24 hours off antibiotic. Prescription given for prednisone 30 mg daily for 5 more days for acute gouty arthritis. Allopurinol dose increased to 200 mg daily. Advised to follow-up with a scada engineer Dr. Chaudhari. 2. History of chronic gouty arthritis: Serum uric acid is 7.6. Patient on allopurinol 100 mg daily continued. Motrin low-dose for acute knee pain 09/28: Allopurinol dose increased to 200 mg daily from tomorrow. 3. Hypertension: EMS vitals show systolic blood pressure 200 mmHg. Most recent 189/99. Started on carvedilol and hydralazine oral. Home medication HCTZ and lisinopril held. 09/28: Blood pressure was controlled with amlodipine, carvedilol and hydralazine. Prescriptions given for the same. Advised to keep holding HCTZ and lisinopril for TERRY. 4. TERRY or progressive worsening of CKD: Patient BUN/creatinine was 10/1.0 in November 2018 and no labs afterwards it is 27/1.47. IV fluid ordered. UA is ordered. Patient denies any burning pain or acute lower urine tract symptoms 09/27: Serum osmole at 292, U tox positive of amphetamine. Creatinine improved to 1.31. 09/28: Advised follow-up BMP in 2 weeks with PCP. Living will/advanced directive/end of life care: Patient does not have living will or advanced directive. He does not want regular power of county attorney for health. After discussion of benefits/risks procedures involved with full code, DNR CC arrest and DNR CC, the patient opted for full code. Patient does want artificial life support including intubation, tube feed, ventilator and/chest compression, central venous catheter, vasopressor and DC shock if needed Discharge medication reconciliation done. Discharge follow-up instructions completed. Discharge process discussed with the patient and all questions were answered to patient's satisfaction. Follow with PCP in 1 to 2 weeks Total time spent, exact 35 minutes on discharge meds reconciliation, examination, coordination of care with nurses and ancillary staff, review of imaging and blood test and discussion with the patient on follow-up instructions. Microbiology Past 72 Hours 09/26/24 05:26 Fluid - Synovial (joint) Gram Stain - Final 09/26/24 05:26 Fluid - Synovial (joint) Body Fluid Culture - Preliminary 09/26/24 05:26 Fluid - Synovial (joint) Anaerobic Culture - Preliminary No growth in 48 hours. 09/26/24 22:51 Urine, Clean Catch Urine Culture - Preliminary Culture exhibits no growth. Laboratory Results 09/26/24 05:26: Synovial Glucose < 2 09/26/24 22:51: Urine Color Yellow, Urine Clarity Clear, Urine pH 6.0, Ur Specific Palisade 1.015, Urine Protein 30 H, Urine Glucose (UA) Normal, Urine Ketones Negative, Urine Occult Blood 150 H, Urine Nitrite Negative, Urine Bilirubin Negative, Urine Urobilinogen 1 H, Ur Leukocyte Esterase Negative, Urine RBC 5-10 SEEN, Urine WBC 0-5 SEEN, Ur Squamous Epith Cells 0 SEEN, Urine Bacteria 0 SEEN, Urine Mucus 0 SEEN 09/26/24 04:35: Diff Path Review Reviewed 09/26/24 05:26: Synovial Path Comment Reviewed, Synovial Glucose < 2 09/26/24 17:31: Serum Osmolality 292 09/26/24 22:51: Urine Opiates Screen NEGATIVE, Urine Methadone Screen NEGATIVE, Ur Barbiturates Screen NEGATIVE, Ur Phencyclidine Scrn NEGATIVE, Ur Amphetamines Screen POSITIVE H, MDMA (Ecstasy) Screen NEGATIVE, U Benzodiazepines Scrn NEGATIVE, Urine Cocaine Screen NEGATIVE, U Cannabinoids Screen NEGATIVE, Ur Drug Screen Comment 09/27/24 06:46: WBC 10.1, RBC 4.99, Hgb 14.4, Hct 41.9, MCV 84.0, MCH 28.9, MCHC 34.4, RDW Std Deviation 42.4, RDW Coeff of Gopi 14.0, Plt Count 271, MPV 9.8, Immature Gran % (Auto) 0.700, Neut % (Auto) 71.0 H, Lymph % (Auto) 13.3 L, Knott % (Auto) 9.7, Eos % (Auto) 3.8, Baso % (Auto) 1.5 H, Absolute Neuts (auto) 7.1, Absolute Lymphs (auto) 1.34, Nucleated RBC % 0, Sodium 137, Potassium 4.0, C hloride 110 H, Carbon Dioxide 21.0, Anion Gap 6, BUN 28 H, Creatinine 1.31 H, Estim Creat Clear Calc 70.06, Est GFR (MDRD) Af Amer 71, Est GFR (MDRD) Non-Af 59 L, BUN/Creatinine Ratio 21.4 H, Glucose 93, Calcium 8.3 L Clinical Impression(s) from Imaging Studies Knee X-Ray 09/26/24 04:28 IMPRESSION: KNEE JOINT EFFUSION. WITH A HISTORY OF TRAUMA AND NO VISIBLE FRACTURE, INTERNAL DERANGEMENT CANNOT BE EXCLUDED. Medications at Discharge Home Medications lisinopril 10 mg tablet 40 mg PO BID 06/14/13 Held on 09/28/24. Instructions: Hold at least for 1 week followed PCP with repeat BMP. Recommended not to exceed lisinopril 40 mg daily albuterol sulfate 90 mcg/actuation aerosol inhaler (Ventolin HFA) 1 inh inhalation BID copd 09/26/24 hydrochlorothiazide 12.5 mg tablet 12.5 mg PO BID 09/26/24 Held on 09/28/24. Instructions: Hold for TERRY. Follow with PCP with repeat BMP allopurinol 100 mg tablet 200 mg (2 x 100 mg) PO DAILY 30 days #60 tabs 09/28/24 amlodipine 10 mg tablet 10 mg PO DAILY 30 days #30 tabs 09/28/24 carvedilol 6.25 mg tablet 6.25 mg PO BIDCM 30 days #60 tabs 09/28/24 hydralazine 50 mg tablet 50 mg PO TID 30 days #90 tabs 09/28/24 pantoprazole 40 mg tablet,delayed release 40 mg PO DAILY 30 days #30 tabs 09/28/24 prednisone 20 mg tablet 30 mg (1.5 x 20 mg) PO BREAKFAST 5 days #8 tabs 09/28/24 Physical Exam Narrative Seen and examined Patient left knee swelling and pain has improved. Patient walked with the therapy. Advised outpatient physical therapy and prescription side Physical exam General: Alert, Oriented x3, Cooperative HEENT: Atraumatic, PERRLA, EOMI, Normocephalic Oral: Defect/hole in the soft palate midline, traumatic. Wears prosthesis. No acute inflammation or lesion in oral pharyngeal region Neck: Supple, No JVD, Negative Carotid Bruits Chest wall/Lungs: Air entry diminished in bilateral lung bases. No crepitation/rhonchi Cardiovascular: Regular rate, Regular Rhythm, Normal S1, Normal S2, No M/G/R Abdomen: Bowel Sounds Present, Soft, Non Tender, Non-Distended : No dysuria. No renal angle tenderness. No suprapubic tenderness. Extremities: No edema, Capillary Refill Less than 3 Seconds Skin: Left knee with Boy wrap bandage. Swelling and tenderness of left knee has much improved. 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 No Tenderness to Palpation of other joints or Extremities Neurological: Cranial nerves II-XII grossly intact, DTR 2+/4. No acute focal neurological deficit. Psych/Mental Status: Normal Affect, Appropriate. Weight / BMI Weight Weight: 210 lb 8.663 oz Body Mass Index (BMI) 28.5 ABG / Lab / Microbiology Data 09/27/24 06:46 09/27/24 06:46 Laboratory: Laboratory Results - last 24 hr 09/26/24 05:26: Synovial Glucose < 2 09/26/24 22:51: Urine Color Yellow, Urine Clarity Clear, Urine pH 6.0, Ur Specific Palisade 1.015, Urine Protein 30 H, Urine Glucose (UA) Normal, Urine Ketones Negative, Urine Occult Blood 150 H, Urine Nitrite Negative, Urine Bilirubin Negative, Urine Urobilinogen 1 H, Ur Leukocyte Esterase Negative, Urine RBC 5-10 SEEN, Urine WBC 0-5 SEEN, Ur Squamous Epith Cells 0 SEEN, Urine Bacteria 0 SEEN, Urine Mucus 0 SEEN Microbiology: Microbiology 09/26/24 05:26 Fluid - Synovial (joint) Gram Stain - Final 09/26/24 05:26 Fluid - Synovial (joint) Body Fluid Culture - Preliminary 09/26/24 05:26 Fluid - Synovial (joint) Anaerobic Culture - Preliminary No growth in 48 hours. 09/26/24 22:51 Urine, Clean Catch Urine Culture - Preliminary Culture exhibits no growth. D/C Instructions Discharge Diet: Light diet - advance as tolerated, Low fat / Low cholesterol and 2000 mg Sodium Diet Weight Bearing Status: Weight bearing as tolerated Call your doctor if you observe: Fever of 101 or Higher, Coldness, Increased Pain, Numbness or Tingling, Change in Color, Inability to urinate, Inability to have a bowel movement, Shortness of breath, Dizziness, Fainting spells, Swelling in the ankles, Chest pain, Prolonged hiccupping, Increased palpitations (irregular heartbeat) and Calf discomfort DC O2, CPAP, BIPAP Needs Home O2 Discharge instructions: No When: IN 2 WEEKS Meaningful Use Info Meaningful Use Meaningful Use Diagnoses (Choose all that apply): None applicable Ischemic Stroke Statin Dosing Therapy Reference: STATIN DOSE THERAPY REFERENCE: * Patients > 75 years receive moderate or high dose statin therapy. * Patients 75 years or YOUNGER should receive HIGH intensity statin dose unless contraindicated. You will be required to document reason for non-treatment if statin daily dose does not meet guidelines. HIGH DOSE STATIN THERAPY DAILY Atorvastatin > than or = to 40 mg Rosuvastatin > than or = to 20 mg Amlodipine + Atorvastatin > than or = to 2.5/40 mg Ezetimibe + Simvastatin 10/80 mg Simvastatin 80mg Discharge Plan Admission Admit Date/Time: 09/26/24 09:30 Primary Reason for Your Visit: Gouty arthritis with TERRY Attending Provider: Amadou Hughes Primary Care Provider: Harvey Erazo Consulting Providers: Seferino Perez; Albino Guthrie Discharge Orders/Prescriptions Prescriptions: New carvedilol 6.25 mg Tablet 6.25 mg PO BIDCM 30 Days Qty: 60 0RF Rx Instructions: Hold if heart rate less than 60/min and if persistently low between 60-70/m, can decrease the dose to 25 mg twice daily in consultation his PCP amlodipine 10 mg Tablet 10 mg PO DAILY 30 Days Qty: 30 0RF hydralazine 50 mg Tablet 50 mg PO TID 30 Days Qty: 90 0RF prednisone 20 mg Tablet 30 mg PO BREAKFAST 5 Days Qty: 8 0RF pantoprazole 40 mg Tablet,Delayed Release (Dr/Ec) 40 mg PO DAILY 30 Days Qty: 30 0RF Continued albuterol sulfate [Ventolin HFA] 90 mcg/actuation HFA aerosol inhaler 1 inh inhalation BID Changed allopurinol 100 MG tablet 200 mg PO DAILY 30 Days Qty: 60 0RF Held lisinopril 10 MG tablet 40 mg PO BID Hold Instructions: Hold at least for 1 week followed PCP with repeat BMP. Recommended not to exceed lisinopril 40 mg daily hydrochlorothiazide 12.5 mg tablet 12.5 mg PO BID Hold Instructions: Hold for TERRY. Follow with PCP with repeat BMP Referrals / Follow Up: Harvey Erazo MD [Primary Care Provider] - Adrianne Chaudhari MD [Med Staff - Senior Mortgage Underwriter] - Within 1 Month (For recurrent severe osteoarthritis) Disposition Disposition (needs filled in before D/C Order can be placed): Home, Self Care Charges/Coding Visit Charges Inpatient E&M: 82380 Disch Hosp >30min
[2024-09-28 13:55] VITALS: BP 149/75; PULSE 76; RESP 16; TEMP 37.2; O2SAT 95
[2024-09-28 13:59] VITALS: PULSE 76
--- NOTE | 2024-09-28 15:06 | CASEMGMT ---
Social Work- SW met with pt to offer resources and support. Pt reports that he lost his home 5 years ago after he spent time in senior care. since that time, pt has been living at the [facility]. Pt reports that he has a microwave, but no kitchen. Pt reports that he walks everywhere. Pt reports that he is on metropolitan housing wait list and has sought assistance through [employer], however, they are unable to assist. Pt reports he has SNAP benefits. Pt does not work with [employer]. Pt has no mental health services. Pt reports that he often tries to order meals, but they will not deliver to the hotel. Pt reports he does not use insurance transport because you have to give notice so far ahead. Pt would like CABRERA to arrange transport. CABRERA called [employer] and set transport for 5pm. Confirmation #: [id number]. CABRERA provided pt printed resources for food resources, people to people, transportation, housing, apartment list, and [employer] card. Pt reports that he called sister for transport home. [facility]A cancelled transport. Plan: Home, no needs GLADIS Macedo
== END 2024-09-28 15:14 | disposition home or self-care (01) | DRG 488 ==
LOC: ED 09:29 → ACINP 09:48 → ED 09-27 02:13 → SDC 09-27 02:13 → ACINP 09-27 02:14 → SDC 09-27 08:53 → MS3 09-27 08:53
PROVIDERS: Orthopaedic Surgery Sports Medicine; Admitting Provider Internal Medicine; Emergency Provider Emergency Medicine; PCP Family Medicine; Visit Provider Internal Medicine
PROC: 0SBD4ZZ Excision of Left Knee Joint, Percutaneous Endoscopic Approach (ICD-10-PCS; CPT 29870; principal; 2024-09-26 11:15)
DX: M10.062 Idiopathic gout, left knee (principal); N17.9 Acute kidney failure, unspecified; I12.9 Hypertensive chronic kidney disease with stage 1 through stage 4 chronic kidney disease, or unspecified chronic kidney disease; N18.9 Chronic kidney disease, unspecified; M1A.0620 Idiopathic chronic gout, left knee, without tophus (tophi); Z79.899 Other long term (current) drug therapy; Z23 Encounter for immunization
CPT/HCPCS: 20610; 36415; 73564; 80048; 80307; 81001; 82945; 83605; 83735; 83930; 84157; 84550; 85025; 85652; 86140; 87070; 87075; 87086; 87205; 89050; 89051; 89060; 90656; 94668; 97162; 97530; 99285; A4216; J2405

== ENCOUNTER 2024-10-06 11:32 | Emergency (ER) | payer MEDICARE, MEDICAID, SELFPAY ==
[2024-10-06 11:32] VITALS: BP 157/100; BP 162/117; PULSE 76; RESP 18; TEMP 36.6; O2SAT 98
--- NOTE | 2024-10-06 12:00 | RAD_ITS ---
PROCEDURE: KNEE 4 OR MORE VIEWS REASON FOR EXAM: Knee pain, recent washout TECHNIQUE: 4 view(s) of the left knee COMPARISON: 09/26/2024. FINDINGS: No fracture. No suspicious bone lesion. Moderate degenerative changes. Moderate joint effusion. Vascular calcifications in the soft tissues RAD/Knee 4 or More Views IMPRESSION: Moderate tricompartmental degenerative changes with moderate suprapatellar join t effusion. No acute fracture Reading Location: [facility]
--- NOTE | 2024-10-06 12:43 | VDLE_ITS ---
Reason For Study Reason For Study: LLE Pain RIGHT LEFT CFV is compressible, spontaneous, phasic, competent GSV is normal. and demonstrates normal augmentation. CFV is compressible, spontaneous, phasic, competent, Procedure and demonstrates normal augmentation. Exam performed portable in ED. FV is compressible, spontaneous, phasic, competent This is a venous duplex using B-mode, color flow and and demonstrates normal augmentation. spectral Doppler. POP V is compressible, spontaneous, phasic, competent The exam was diagnostic. and demonstrates normal augmentation. A preliminary report was called and/or faxed to ED RN T/P Trunk is compressible. Dominique. PTV is compressible. LT PerV is compressible. Nonvascularized area of mixed echogenicity noted in Lt POP Fossa measuring approximately 4.48cm x 1.35cm. VL/Venous Duplex US, Unilateral Interpretation Summary Deep veins of the left lower extremity are patent and compressible segmentally. There is no evidence of left lower extremity deep vein thrombosis. Valvular competence appears intact within the p roximal deep venous system on the left . The left great saphenous vein appears patent and compressible segmentally. The right common femoral vein is patent and compressible . A non-vascular, heterogeneous structure is noted in the left pop liteal space, measuring 4.48 cm x 1.35 cm. This probably represents a popliteal cyst. Clinical correlation is advised. Ordering Physician: Dustin Teresa Referring Physician: Harvey Erazo Performed By: Taz Rush RVT
[2024-10-06] MEDS: Ondansetron ODT 4 MG Tablet PO (12:54)
[2024-10-06] MEDS: HYDROcodone Bitartrate/Apap 5/325 Tablet PO (12:54)
--- NOTE | 2024-10-06 13:34 | EDS_ITS ---
HPI History of Present Illness Chief Complaint: Lower Extremity Injury Narrative Narrative: Patient is a 64-year-old male with a past medical history hypertension, gout who presents to the emergency department with a chief complaint of left knee pain. Patient states that he has been taking the steroids that he was prescribed as well as his allopurinol patient states that his knee has been hurting him ever since he left the hospital after they took him to the OR to washes out. He st ates that he has not slept for the past few days which was ultimately what brought him to the hospital to be evaluated. Patient denies any fevers or any other injuries. He is complaining of some swelling in his left lower extremity. Denies any history of blood clots. [facility] Medical History Gout Hypertension Home Medications ?Medication ?Instructions ?Recorded ?Last Taken ?Type lisinopril 10 mg tablet 40 mg PO BID 06/14/13 08:00 History Held on 09/28/24. Instructions: Hold at least for 1 week followed PCP with repeat BMP. Recommended not to exceed lisinopril 40 mg daily albuterol sulfate 90 mcg/actuation 1 inh inhalation BI D copd 09/26/24 09/25/24 08:00 History aerosol inhaler (Ventolin HFA) hydrochlorothiazide 12.5 mg tablet 12.5 mg PO BID 09/0809/25/24 08:00 History Held on 09/28/24. Instructions: Hold for TERRY. Follow with PCP with repeat BMP allopurinol 100 mg tablet 200 mg (2 x 100 mg) PO DAILY 30 09/28/24 Unknown Rx days #60 tabs amlodipine 10 mg tablet 10 mg PO DAILY 30 days #30 t abs 09/28/24 Unknown Rx carvedilol 6.25 mg tablet 6.25 mg PO BIDCM 30 days #60 tabs 09/28/24 Unknown Rx hydralazine 50 mg tablet 50 mg PO TID 30 days #90 tab s 09/28/24 Unknown Rx pantoprazole 40 mg tablet,delayed 40 mg PO DAILY 30 da ys #30 tabs 09/28/24 Unknown Rx release prednisone 20 mg tablet 30 mg (1.5 x 20 mg) PO BREAK FAST 5 09/28/24 Unknown Rx days #8 tabs indomethacin 25 mg capsule 25 mg PO TID 5 days #15 cap s 10/06/24 Unknown Rx ondansetron 4 mg disintegrating 4 mg PO Q6H PRN nausea and 10/06/24 Unknown Rx tablet vomiting #30 tabs oxycodone-acetaminophen 5 mg-325 1 tab PO Q6H PRN pain 3 days #12 10/06/24 Unknown Rx mg tablet (Endocet) tabs Allergy/AdvReac Type Severity Reaction Status Date / Time propoxyphene napsylate (From Allergy Rash Verified 10/06/24 11:33 Darvocet-N 100) tramadol HCl (From Ultram) AdvReac Upset Verified 10/06/24 11:33 Stomach Surgical History Finger amputation, traumatic S/P right knee arthroscopy Social History Smoking Status: Never smoker ROS ROS ED ROS Narrative Constitutional: Denies fevers, chills, has colitis, dizziness Neurological: Denies numbness, weakness, tingling Musculoskeletal: Complains of knee pain as noted above Skin: Denies rashes or lesions states that his incisions are healing well EXAM Physical Exam Narrative Exam Narrative: General: Patient lying in bed rest comfortably did not appear to be acute Head: Atraumatic, normocephalic Eyes: PERRL bilaterally, EOMI bilateral, no conjunctival injection noted Neck: Soft, supple, trachea midline Cardiovascular: Regular rate and rhythm no murmurs gallops rubs are noted Respiratory: Clear to auscultation bilaterally no rales rhonchi or wheezes noted Abdomen: Soft, nondistended, nontender to palpation Musculoskeletal: Patient's surgical incisions are well-healing no concern for infection no surrounding erythema no purulent discharge noted, compartments are soft compressible Extremities: DP pulses +2/4 in the bilateral lower extremities, +5/5 strength noted in the bilateral upper and lower extremities Neurological: Patient follow commands knew that he was at [facility] year is 2024 Skin: Warm, dry, intact no rashes or lesions noted Const Vital Signs: 10/06/24 11:32 10/06/24 11:32 Temperature 98 F Temperature Source Temporal Pulse Rate 76 Respiratory Rate 18 Blood Pressure 157/100 H 162/117 H Blood Pressure Mean 119 132 Pulse Ox 98 Oxygen Delivery Method Room Air MDM MDM MDM Narrative Medical decision making narrative: Patient is a 64-year-old male who presented to the emergency department with a chief complaint of left knee pain. On the differential diagnose includes but not limited to gout flare, musculoskeletal strain DVT, superficial venous thrombosis. Once workup is obtained reviewed he will be reevaluated Patient's operative report was reviewed and at that point time there is signs of calcific gouty deposits throughout the cartilage of the knee. The ligamentum mucosum debrided removed. ACL PCL were normal. There is minor amount of fraying to the medial and lateral meniscus. There was partial synovectomy done as well. Patient was ultimately sent home on prednisone antibiotics were not continued as there is no concern for septic joint as cultures had no growth. Patient's venous duplex here in the emergency department was negative. At this point time do believe that since the patient's knee pain has been unchanged since discharge and he remains nontoxic in appearance vital signs are normal outside of high blood pressure. Patient states he has had no fevers and I do believe that this is likely secondary to his gout still given his intraoperative findings and unchanged symptoms. Patient was able to bend his knee however he does have pain with this but is still able to bend this. I reached out to Dr. Guthrie I discussed case with him he is recommending placing the patient on indomethacin 25 mg 3 times daily. I will give the patient prescription for Endocet and Zofran and advised him not operate anything under the influence of these narcotics. Dr. Guthrie said he will see you in the office on Tuesday for follow-up appointment. He was advised to return with worsening symptoms or concerns. Patient is agreeable this plan all course concerns answered is discharged home in stable condition. Radiography Diagnostic Testing: Clinical Impression(s) from Imaging Studies Knee X-Ray 10/06/24 12:00 IMPRESSION: Moderate tricompartmental degenerative changes with moderate suprapatellar joint effusion. No acute fracture Reading Location: [facility] Discharge Plan Triage Chief Complaint: Lower Extremity Injury ED Provider: Dustin Teresa Dx/Rx/DC Orders Clinical Impression: Knee pain, left Prescriptions: New indomethacin 25 mg capsule 25 mg PO TID 5 Days Qty: 15 0RF Rx Instructions: administer with food or milk oxycodone-acetaminophen [Endocet] 5-325 mg tablet 1 tab PO Q6H PRN (Reason: pain) 3 Days Qty: 12 0RF ondansetron 4 mg tablet,disintegrating 4 mg PO Q6H PRN (Reason: nausea and vomiting) Qty: 30 0RF No Action lisinopril 10 MG tablet 40 mg PO BID hydrochlorothiazide 12.5 mg tablet 12.5 mg PO BID albuterol sulfate [Ventolin HFA] 90 mcg/actuation HFA aerosol inhaler 1 inh inhalation BID carvedilol 6.25 mg Tablet 6.25 mg PO BIDCM 30 Days Qty: 60 0RF Rx Instructions: Hold if heart rate less than 60/min and if persistently low between 60-70/m, can decrease the dose to 25 mg twice daily in consultation his PCP amlodipine 10 mg Tablet 10 mg PO DAILY 30 Days Qty: 30 0RF hydralazine 50 mg Tablet 50 mg PO TID 30 Days Qty: 90 0RF prednisone 20 mg Tablet 30 mg PO BREAKFAST 5 Days Qty: 8 0RF pantoprazole 40 mg Tablet,Delayed Release (Dr/Ec) 40 mg PO DAILY 30 Days Qty: 30 0RF allopurinol 100 MG tablet 200 mg PO DAILY 30 Days Qty: 60 0RF Primary Care Provider: Harvey Erazo Referrals: Harvey Erazo MD [Primary Care Provider] - Albino Guthrie MD [Med Staff - Active Staff] - Activity Restrictions/Additional Instructions: You need to follow-up with Dr. Guthrie on Tuesday he states that he will see you in the office for follow-up appointment. Use the indomethacin that was sent to the pharmacy as prescribed stop taking any other NSAIDs such as ibuprofen, Aleve, Advil etc. that you are currently taking at home. Use the Endocet for severe pain. Make sure you take the Zofran with this as this will upset your stomach. You need to return for fevers, redness around your knee or any other concerns. Your ultrasound of your leg did not show any evidence of blood clots. Print Language: Thai Disposition Disposition: Home, Self Care
--- NOTE | 2024-10-06 14:14 | PCM.PN.ORT ---
Subjective Subjective Patient back in ED. ongoing knee pain. was dc'd on prednisone. only thing helping is oral nsaids. per ED doctor - no redness, warmth, fever, or change from status when the patient was discharged. knee ROM difficult per him. Objective Data Objective Data Vital Signs: Vital Signs Temp Pulse Resp BP Pulse Ox O2 Del Method 98 F 76 18 162/117 H 98 Room Air 10/06/24 11:32 10/06/24 11:32 10/06/24 11:32 10/06/24 11:32 10/06/24 11:32 10/06/24 11:32 Oxygen Delivery Method Room Air Radiography Diagnostic Testing: Radiology Impression Knee X-Ray 10/06/24 12:00 IMPRESSION: Moderate tricompartmental degenerative changes with moderate suprapatellar joint effusion. No acute fracture Reading Location: [facility] Assessment & Plan Assessment/Plan (1) Gout: PLAN: Myself and ED doctor in agreement, likely still painful from gout. Would suggest trying 3-5 days po indomethacin 25mg TID. FU in clinic on tuesday. no concern for post op infection or septic joint.
[2024-10-06 14:39] VITALS: BP 170/80; PULSE 68; RESP 18; TEMP 36.2; O2SAT 98
== END 2024-10-06 15:10 | disposition home or self-care (01) ==
PROVIDERS: Emergency Provider Emergency Medicine; PCP Family Medicine; Visit Provider Emergency Medicine
DX: M25.562 Pain in left knee (principal); M10.9 Gout, unspecified; I10 Essential (primary) hypertension; Z79.899 Other long term (current) drug therapy; M79.89 Other specified soft tissue disorders
CPT/HCPCS: 73564; 93971; 99282